=== PATIENT | female | born 1985 | race Caucasian/White ===

== ENCOUNTER 2016-05-14 19:41 | Emergency (ER) | payer OTHER ==
[~2016-05-14 19:41] MED LIST: ACET500C OR; COLA100C2 OR; DITR5TAB PO; IBUP600T OR; LEVA500T PO; NORCOTAB PO; PRENATAL VITAMIN OR; VALT500T PO
[2016-05-14 23:02] LABS: BASO % 0.6 % (0.0-1.0); EOS # 0.1 K/mm3 (0.0-0.50); EOS % 1.4 % (0.0-3.0); LARGE UNSTAINED CELL # 0.1 K/mm3 (0.0-0.4); LARGE UNSTAINED CELL % 2.3 % (0.0-4.0); LYMPH # 2.2 K/mm3 (1.5-4.5); LYMPH % 38.7 % (24.0-44.0); MEAN CORPUSCULAR HEMOGLOBIN 19.7 pg (27.0-33.0); MEAN CORPUSCULAR HGB CONC 27.9 g/dl (32.0-36.5); MEAN CORPUSCULAR VOLUME 70.3 fl (80.0-96.0); MONO # 0.3 K/mm3 (0.0-0.8); MONO % 5.8 % (0.0-5.0); NEUTROPHILS # 2.8 K/mm3 (1.8-7.7); NEUTROPHILS % 51.3 % (36.0-66.0); PLATELET COUNT, AUTOMATED 150 k/mm3 (150-450); RED CELL DISTRIBUTION WIDTH 17.4 % (11.5-14.5); WHITE BLOOD COUNT 5.5 K/mm3 (4.0-10.0)
[2016-05-14 23:05] LABS: ADD MORPHOLOGY? YES
[2016-05-14 23:31] LABS: ALBUMIN 3.7 GM/DL (3.2-5.2); ALBUMIN/GLOBULIN RATIO 1.19 (1.00-1.93); ALKALINE PHOSPHATASE 59 U/L (45-117); ALT/SGPT 16 U/L (12-78); AMYLASE 24 U/L (25-115); ANION GAP 8 MEQ/L (8-16); AST/SGOT 9 U/L (15-37); BILIRUBIN,DIRECT < 0.1 MG/DL (0.0-0.2); BILIRUBIN,TOTAL 0.2 MG/DL (0.2-1.0); BLOOD UREA NITROGEN 12 MG/DL (7-18); CALCIUM LEVEL 8.1 MG/DL (8.5-10.1); CARBON DIOXIDE LEVEL 29 MEQ/L (21-32); CHLORIDE LEVEL 105 MEQ/L (98-107); GLOMERULAR FILTRATION RATE > 60.0 (>60); GLUCOSE, FASTING 84 MG/DL (70-105); POTASSIUM SERUM 3.6 MEQ/L (3.5-5.1); SODIUM LEVEL 142 MEQ/L (136-145); TOTAL PROTEIN 6.8 GM/DL (6.4-8.2)
[2016-05-14 23:37] LABS: ANISOCYTOSIS 1+; HYPOCHROMASIA 2+; MICROCYTOSIS 3+
--- NOTE | 2016-05-15 00:17 | EDDOCDS ---
Physician Documentation [facility] Name: Dione Chopra Age: 31 yrs Sex: Female : 1985 Arrival Date: 05/14/2016 Time: 19:41 Bed I5 / M5 Private MD: Arvin Herring M Disposition: 05/15/16 00:00 Discharged to Home/Self Care. Impression: Generalized abdominal pain, Iron deficiency anemia. - Condition is Stable. - Discharge Instructions: Abdominal Pain, Adult, Iron Deficiency Anemia, Adult. - Medication Reconciliation, Local Pharmacy Hours form. - Follow up: Arvin Herring; When: Call to arrange an appointment; Reason: Recheck today's complaints, Continuance of care. - Problem is new. - Symptoms are unchanged. Historical: - Allergies: Latex; - Home Meds: 1. Valtrex Oral as needed - PMHx: Herpes; Obesity; - PSHx: Cholecystectomy; Tubal ligation (March 2010); Tonsillectomy; Kidney Stent- Right; - Social history: Smoking status: Patient states was never smoker of tobacco. No barriers to communication noted, The patient speaks fluent Irish, Speaks appropriately for age. - Family history: Not pertinent. - : The pt / caregiver states he / she is not on anticoagulants. Home medication list is obtained from the patient, [employer] import data. - Exposure Risk Screening:: None identified. 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 6 in. (167.64 cm) (R); Pain 7/10; 22:29 BP 113 / 58; Pulse 72; Resp 16; Temp 97.5(O); Pulse Ox 99% on R/A; Pain 3/10; sew 05/15 00:11 BP 110 / 60; Pulse 70; Resp 18; Temp 98.9(TE); Pulse Ox 98% on R/A; Pain 4/10; kb5 05/14 19:43 Body Mass Index 28.25 (79.38 kg, 167.64 cm) mt4 MDM: 05/14 19:55 UCG by Nursing ordered. dt4 19:57 Urinalysis Ordered. EDMS 19:57 Urine Culture Ordered. EDMS 22:41 Urinalysis Reviewed. mo1 22:52 Amylase Ordered. EDMS 22:52 Basic Metabolic Profile Ordered. EDMS 22:52 CBC with Diff Ordered. EDMS 22:52 Lipase Ordered. EDMS 22:52 Liver Profile Ordered. EDMS 22:52 Abdomen 2 View Ordered. EDMS 22:52 NOTHING BY MOUTH+DIET ordered. EDMS 23:17 [facility] Payment Agreement was scanned into [employer] and attached to record. gjb 23:17 Financial registration complete. gjb 23:35 Amylase Reviewed. mo1 23:35 Basic Metabolic Profile Reviewed. mo1 23:35 CBC with Diff Reviewed. mo1 23:36 Liver Profile Reviewed. mo1 23:36 Lipase Reviewed. mo1 23:40 RBC MORPH PROF NO CHARGE Reviewed. mo1 23:43 CBC with Diff Reviewed. mo1 23:43 RBC MORPH PROF NO CHARGE Reviewed. mo1 05/15 00:03 FERRITIN Ordered. EDNY Point of Care Testing: Urine : 05/14 20:22 hCG Reading: Negative; Control Reading: Positive; sew Ranges: Signatures: Dispatcher [employer] EDNY Marita Durbin RN RN kmg1 Herminio Downs LPN BIOCHEMISTRY SPECIALIST rw1 Alfreda Vargas,RN RN ld5 William Woodward PA PA mo1 Lisandra Nicholson PA-C PATyshawn dt4 Italia Carvalho The chart was reviewed and I authenticate all verbal orders and agree with the evaluation and treatment provided.Corrections: (The following items were deleted from the chart) 05/15 00:03 05/14 23:58 TOTAL IRON BINDING CAPACIT+LAB ordered. EDMS EDMS 05/15 00:03 05/14 23:58 FERRITIN+LAB ordered. EDNY EDMS 05/15 00:03 05/14 23:58 IRON (FE)+LAB ordered. EDNY EDMS Attachments: 23:17 [facility] Payment Agreement gjb MTDD
--- NOTE | 2016-05-15 00:17 | EDDOCDS ---
Nurse's Notes [facility] Name: Dione Chopra Age: 31 yrs Sex: Female : 1985 Arrival Date: 05/14/2016 Time: 19:41 Bed I5 / M5 Private MD: Arvin Herring M Diagnosis: Generalized abdominal pain;Iron deficiency anemia Presentation: 05/14 19:51 Presenting complaint: Patient states: Left lower abdominal pain and burning for 2 days. [facility] [place] Risk factors: the patient reports no vaginal bleeding. Adult Sepsis Screening: The patient does not have new or worsening altered mentation. Patient's respiratory rate is less than 22. Systolic blood pressure is greater than 100. Patient has a qSOFA score of 0- Negative Sepsis Screen. Suicide/Homicide risk assessment- the patient denies having any suicidal and/or homicidal ideations and does not present with any other emotional, behavioral or mental health complaints. 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 Transition of care: patient was not received from another setting of care. 19:51 Acuity: ODILON Level 3 [facility] [place] [place] 19:51 Method Of Arrival: Walkin/Carried/Asstd [facility] [place] [place] Triage Assessment: 19:53 General: Appears in no apparent distress, comfortable, Behavior is appropriate for age, kmg1 cooperative, pleasant. Pain: Location: left lower quadrant Pain currently is 6 out of 10 on a pain scale. Quality of pain is described as burning, stabbing, Pain began 2-3 days ago. HIV screening NA for this visit Offered previously. GI: Reports lower abdominal pain. 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 Valtrex Oral as needed - PMHx: Herpes; Obesity; - PSHx: Cholecystectomy; Tubal ligation (March 2010); Tonsillectomy; Kidney Stent- Right; - Social history: Smoking status: Patient states was never smoker of tobacco. No barriers to communication noted, The patient speaks fluent Wallisian, Speaks appropriately for age. - Family history: Not pertinent. - : The pt / caregiver states he / she is not on anticoagulants. Home medication list is obtained from the patient, [employer] import data. - Exposure Risk Screening:: None identified. Screenin/22 00:00 Screening information is obtained from the patient. Fall risk: No risks identified. ld5 Assistance ADL's: requires no assistance with activities of daily living. Abuse/DV Screen: The patient / caregiver reports he/she is: not in a situation that causes fear, pain or injury. Nutritional screening: No deficits noted. Advance Directives: Currently, there is no health care proxy. home support is adequate. Assessment: 05/14 23:57 General: First contact with pt. Pt sitting up in bed. Son at bedside. Pt reports ld5 abdominal pain for past 2 days. Denies nausea/vomiting. Respirations easy and unlabored. Neurological: Level of Consciousness is awake, alert. GI: Abdomen is non- distended Bowel sounds present X 4 quads. Abd is soft and non tender X 4 quads. : Denies burning with urination, pain with urination. Derm: Skin is intact, Skin is dry, Skin is pale. 05/15 00:14 Reassessment: Patient appears in no apparent distress at this time. Patient states rw1 feeling better. no c/o at this time, states " I'm good ready to go home.". Vital Signs: 05/14 19:43 BP 111 / 56 LA Sitting (auto/reg); Pulse 83 LA; Resp 18 S; Temp 97.2(O); Pulse Ox 100% hi4 on R/A; Weight 79.38 kg (R); Height 5 ft. 6 in. (167.64 cm) (R); Pain 7/10; 22:29 BP 113 / 58; Pulse 72; Resp 16; Temp 97.5(O); Pulse Ox 99% on R/A; Pain 3/10; sew 05/15 00:11 BP 110 / 60; Pulse 70; Resp 18; Temp 98.9(TE); Pulse Ox 98% on R/A; Pain 4/10; kb5 05/14 19:43 Body Mass Index 28.25 (79.38 kg, 167.64 cm) hi4 Vitals: 05/14 19:43 Log In Time: May 14, 2016 at 19:41. hi4 ED Course: 19:42 Patient visited by Bruna Reyes. mt4 19:42 Patient moved to Waiting mt4 19:43 Arvin Herring is Private Physician. mt4 19:45 Patient moved to Pre RCE mt4 19:52 Triage Initiated kmg1 20:20 Urine Culture Sent. sew 20:20 Urinalysis Sent. sew 20:21 Patient visited by Elham Thompson. sew 20:21 Urine collected. Clean catch specimen. Urine specimen sent to lab. sew 20:22 Patient visited by Elham Thompson. sew 22:17 Patient moved to Triage 2 jf3 22:26 William Woodward PA is PHCP. mo1 22:26 Preet Lawrence DO is Attending Physician. mo1 22:29 Patient visited by Elham Thompson. sew 22:46 Patient visited by William Woodward PA. mo1 22:56 Amylase Sent. jf3 22:56 Basic Metabolic Profile Sent. jf3 22:56 CBC with Diff Sent. jf3 22:56 Lipase Sent. jf3 22:56 Liver Profile Sent. jf3 22:57 Patient moved to TR1 jf3 23:17 [facility] Payment Agreement was scanned into [employer] and attached to record. gjb 23:40 Patient moved to 5 / cz 23:51 Patient visited by Alfreda Vargas RN. ld5 01 00:00 Arvin Herring is Referral Physician. mo1 00:00 The patient / caregiver is instructed regarding the plan of care and ED course. ld5 Accompanied by Family Member, Patient has correct armband on for positive identification. 00:00 No IV's were initiated during this patient's visit. No procedures done that require ld5 assistance. 00:01 Patient visited by Alfreda Vargas RN. ld5 00:04 Patient visited by William Woodward PA. mo1 00:11 Patient visited by Kanu Harris PCA. kb5 Point of Care Testing: Urine : 05/14 20:22 hCG Reading: Negative; Control Reading: Positive; sew Ranges: Order Results: Lab Order: Urinalysis; SPEC'M 05/14/16 20:15 Test: APPEARANCE, URINE; Value: CLEAR; Range: CLEAR; Status: F Test: COLOR, URINE; Value: YELLOW; Range: YELLOW; Status: F Test: PH,URINE; Value: 5.0; Range: 5.0-9.0; Units: UNITS; Status: F Test: SPECIFIC GRAVITY URINE AUTO; Value: 1.029; Range: 1.002-1.035; Status: F Test: PROTEIN, URINE AUTO; Value: NEGATIVE; Range: NEGATIVE; Units: mg/dL; Status: F Test: GLUCOSE, URINE (UA) AUTO; Value: NEGATIVE; Range: NEGATIVE; Units: mg/dL; Status: F Test: KETONE, URINE AUTO; Value: TRACE; Range: NEGATIVE; Abnormal: Above high normal; Units: mg/dL; Status: F Test: UROBILINOGEN, URINE AUTO; Value: 0.2; Range: 0.0-2.0; Units: mg/dL; Status: F Test: BILIRUBIN, URINE AUTO; Value: NEGATIVE; Range: NEGATIVE; Status: F Test: NITRITE, URINE AUTO; Value: NEGATIVE; Range: NEGATIVE; Status: F Test: LEUKOCYTE ESTERASE, URINE AUTO; Value: 1+; Range: NEGATIVE; Abnormal: Above high normal; Status: F Test: BLOOD, URINE BLOOD; Value: NEGATIVE; Range: NEGATIVE; Status: F Test: WBC, URINE AUTO; Value: 6; Range: 0-3; Abnormal: Above high normal; Units: /HPF; Status: F Test: RBC, URINE AUTO; Value: 2; Range: 0-3; Units: /HPF; Status: F Test: BACTERIA, URINE AUTO; Value: 1+; Range: NEGATIVE; Abnormal: Above high normal; Status: F Test: SQUAMOUS EPITHELIAL CELL UR AU; Value: 4; Range: 0-6; Units: /HPF; Status: F Test: MUCUS, URINE; Value: MODERATE; Range: NEGATIVE; Status: F Test: HYALINE CAST, URINE AUTO; Value: 0; Range: 0-1; Units: /LPF; Status: F Lab Order: Amylase; SPEC'M 05/14/16 22:56 Test: AMYLASE; Value: 24; Range: 25-115; Abnormal: Below low normal; Units: U/L; Status: F Lab Order: Basic Metabolic Profile; SPEC'M 05/14/16 22:56 Test: GLUCOSE, FASTING; Value: 84; Range: 70-105; Units: MG/DL; Status: F Test: BLOOD UREA NITROGEN; Value: 12; Range: 7-18; Units: MG/DL; Status: F Test: CREATININE FOR GFR; Value: 0.50; Range: 0.55-1.02; Abnormal: Below low normal; Units: MG/DL; Status: F Test: GLOMERULAR FILTRATION RATE; Value: > 60.0; Range: >60; Status: F Test: SODIUM LEVEL; Value: 142; Range: 136-145; Units: MEQ/L; Status: F Test: POTASSIUM SERUM; Value: 3.6; Range: 3.5-5.1; Units: MEQ/L; Status: F Test: CHLORIDE LEVEL; Value: 105; Range: 98-107; Units: MEQ/L; Status: F Test: CARBON DIOXIDE LEVEL; Value: 29; Range: 21-32; Units: MEQ/L; Status: F Test: ANION GAP; Value: 8; Range: 8-16; Units: MEQ/L; Status: F Test: CALCIUM LEVEL; Value: 8.1; Range: 8.5-10.1; Abnormal: Below low normal; Units: MG/DL; Status: F Test Note: ; Units are mL/min/1.73 m2 Chronic Kidney Disease Staging per NKF: Stage I & II GFR >=60 Normal to Mildly Decreased Stage III GFR 30-59 Moderately Decreased Stage IV GFR 15-29 Severely Decreased Stage V GFR <15 Very Little GFR Left ESRD GFR <15 on PRESSURIZER Lab Order: CBC with Diff; SPEC'M 05/14/16 22:56 Test: WHITE BLOOD COUNT; Value: 5.5; Range: 4.0-10.0; Units: K/mm3; Status: F Test: RED BLOOD COUNT; Value: 3.74; Range: 4.00-5.40; Abnormal: Below low normal; Units: M/mm3; Status: F Test: HEMOGLOBIN; Value: 7.4; Range: 12.0-16.0; Abnormal: Below low normal; Units: g/dl; Status: F Test: HEMATOCRIT; Value: 26.3; Range: 36.0-47.0; Abnormal: Below low normal; Units: %; Status: F Test: MEAN CORPUSCULAR VOLUME; Value: 70.3; Range: 80.0-96.0; Abnormal: Below low normal; Units: fl; Status: F Test: MEAN CORPUSCULAR HEMOGLOBIN; Value: 19.7; Range: 27.0-33.0; Abnormal: Below low normal; Units: pg; Status: F Test: MEAN CORPUSCULAR HGB CONC; Value: 27.9; Range: 32.0-36.5; Abnormal: Below low normal; Units: g/dl; Status: F Test: RED CELL DISTRIBUTION WIDTH; Value: 17.4; Range: 11.5-14.5; Abnormal: Above high normal; Units: %; Status: F Test: PLATELET COUNT, AUTOMATED; Value: 150; Range: 150-450; Units: k/mm3; Status: F Test: NEUTROPHILS %; Value: 51.3; Range: 36.0-66.0; Units: %; Status: F Test: LYMPH %; Value: 38.7; Range: 24.0-44.0; Units: %; Status: F Test: MONO %; Value: 5.8; Range: 0.0-5.0; Abnormal: Above high normal; Units: %; Status: F Test: EOS %; Value: 1.4; Range: 0.0-3.0; Units: %; Status: F Test: BASO %; Value: 0.6; Range: 0.0-1.0; Units: %; Status: F Test: LARGE UNSTAINED CELL %; Value: 2.3; Range: 0.0-4.0; Units: %; Status: F Test: NEUTROPHILS #; Value: 2.8; Range: 1.8-7.7; Units: K/mm3; Status: F Test: LYMPH #; Value: 2.2; Range: 1.5-4.5; Units: K/mm3; Status: F Test: MONO #; Value: 0.3; Range: 0.0-0.8; Units: K/mm3; Status: F Test: EOS #; Value: 0.1; Range: 0.0-0.50; Units: K/mm3; Status: F Test: BASO #; Value: 0.0; Range: 0.0-0.2; Units: K/mm3; Status: F Test: LARGE UNSTAINED CELL #; Value: 0.1; Range: 0.0-0.4; Units: K/mm3; Status: F Lab Order: Lipase; SPEC'M 05/14/16 22:56 Test: LIPASE; Value: 182; Range: 73-393; Units: U/L; Status: F Lab Order: Liver Profile; SPEC'M 05/14/16 22:56 Test: AST/SGOT; Value: 9; Range: 15-37; Abnormal: Below low normal; Units: U/L; Status: F Test: ALT/SGPT; Value: 16; Range: 12-78; Units: U/L; Status: F Test: ALKALINE PHOSPHATASE; Value: 59; Range: 45-117; Units: U/L; Status: F Test: BILIRUBIN,TOTAL; Value: 0.2; Range: 0.2-1.0; Units: MG/DL; Status: F Test: BILIRUBIN,DIRECT; Value: < 0.1; Range: 0.0-0.2; Units: MG/DL; Status: F Test: TOTAL PROTEIN; Value: 6.8; Range: 6.4-8.2; Units: GM/DL; Status: F Test: ALBUMIN; Value: 3.7; Range: 3.2-5.2; Units: GM/DL; Status: F Test: ALBUMIN/GLOBULIN RATIO; Value: 1.19; Range: 1.00-1.93; Status: F Lab Order: RBC MORPH PROF NO CHARGE; [facility]'M 05/14/16 22:56 Test: PLATELET ESTIMATE; Range: NORMAL; Status: I Test: HYPOCHROMASIA; Value: 2+; Status: F Test: ANISOCYTOSIS; Value: 1+; Status: F Test: MICROCYTOSIS; Value: 3+; Status: F Test: PLATELET ESTIMATE; Value: NORMAL; Range: NORMAL; Status: F Lab Order: FERRITIN; SPEC' 05/14/16 22:56 Test: FERRITIN; Range: 8-252; Units: NG/ML; Status: I Lab Order: TOTAL IRON BINDING CAPACIT; [facility]' 05/14/16 22:56 Test: IRON (FE); Range: 50-170; Units: UG/DL; Status: I Test: TOTAL IRON BINDING CAPACITY; Range: 250-450; Units: UG/DL; Status: I Test: PERCENT SATURATION; Range: 13.2-37.4; Units: %; Status: I Outcome: 05/15 00:00 Discharge ordered by Provider. mo1 00:14 Discharge Assessment: Patient awake, alert and oriented x 3. No cognitive and/or rw1 functional deficits noted. Patient verbalized understanding of disposition instructions. patient administered narcotics - no. The following High Risk Discharge criteria are identified: None. Discharged to home ambulatory. Condition: stable Condition: improved. Discharge instructions given to patient, Instructed on discharge instructions, follow up and referral plans. Demonstrated understanding of instructions, Pt was receptive of discharge instructions/ teaching. No special radiology studies were completed. Property sent home with patient. 00:16 Patient left the ED. rw1 Signatures: Marita Durbin, RN RN kmg1 Misael Baig, RN RN Herminio Ace LPN LPN rw1 Kanu Harris, PEST MANAGEMENT SUPERVISOR PEST MANAGEMENT SUPERVISOR kb5 Bruna Reyes mt4 Alfreda Vargas RN RN ld5 Elham Thompson Michael, PA PA mo1 Fred Alvarez,RN RN jf3 Italia Carvalho Corrections: (The following items were deleted from the chart) 00:15 00:14 Reassessment: Patient appears in no apparent distress at this time. Patient rw1 denies pain at this time. Patient states feeling better. rw1 MTDD
[2016-05-15 00:34] LABS: FERRITIN 1 NG/ML (8-252); PERCENT SATURATION 3.4 % (13.2-37.4); TOTAL IRON BINDING CAPACITY 503 UG/DL (250-450)
--- NOTE | 2016-05-15 08:49 | REP ---
Flat and upright KUB 05/14/2016 Indication: Abdominal pain Comparison: KUB supine 09/16/2014 There is moderate to large amount of stool within the cecum and right colon. Remainder of the colon is air filled with a nonspecific gas pattern. There is no evidence of bowel obstruction. There is no free intraperitoneal air. The bones are normal appearance. Surgical clips are noted in the right upper quadrant without change. A previous right ureteral stent is no longer present Impression : [id number] amount of stool within the cecum and right colon. No evidence of bowel obstruction or free intraperitoneal air Signed by Pina Cates MD 05/15/2016 08:41 A
--- NOTE | 2016-05-17 01:18 | EDDOCDS ---
Nurse's Notes [facility] Name: Dione Chopra Age: 31 yrs Sex: Female : 1985 Arrival Date: 05/14/2016 Time: 19:41 Bed I5 / M5 Private MD: Arvin Herring M Diagnosis: Generalized abdominal pain;Iron deficiency anemia Presentation: 05/14 19:51 Presenting complaint: Patient states: Left lower abdominal pain and burning for 2 days. [facility] [place] Risk factors: the patient reports no vaginal bleeding. Adult Sepsis Screening: The patient does not have new or worsening altered mentation. Patient's respiratory rate is less than 22. Systolic blood pressure is greater than 100. Patient has a qSOFA score of 0- Negative Sepsis Screen. Suicide/Homicide risk assessment- the patient denies having any suicidal and/or homicidal ideations and does not present with any other emotional, behavioral or mental health complaints. Status: Patient is not a director construction services or dependent. Transition of care: patient was not received from another setting of care. 19:51 Acuity: ODILON Level 3 [facility] [place] 19:51 Method Of Arrival: Walkin/Carried/Asstd [facility] [place] Triage Assessment: 19:53 General: Appears in no apparent distress, comfortable, Behavior is appropriate for age, kmg1 cooperative, pleasant. Pain: Location: left lower quadrant Pain currently is 6 out of 10 on a pain scale. Quality of pain is described as burning, stabbing, Pain began 2-3 days ago. HIV screening NA for this visit Offered previously. GI: Reports lower abdominal pain. 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 Valtrex Oral as needed - PMHx: Herpes; Obesity; - PSHx: Cholecystectomy; Tubal ligation (March 2010); Tonsillectomy; Kidney Stent- Right; - Social history: Smoking status: Patient states was never smoker of tobacco. No barriers to communication noted, The patient speaks fluent Azerbaijani, Speaks appropriately for age. - Family history: Not pertinent. - : The pt / caregiver states he / she is not on anticoagulants. Home medication list is obtained from the patient, [employer] import data. - Exposure Risk Screening:: None identified. Screenin/22 00:00 Screening information is obtained from the patient. Fall risk: No risks identified. ld5 Assistance ADL's: requires no assistance with activities of daily living. Abuse/DV Screen: The patient / caregiver reports he/she is: not in a situation that causes fear, pain or injury. Nutritional screening: No deficits noted. Advance Directives: Currently, there is no health care proxy. home support is adequate. Assessment: 05/14 23:57 General: First contact with pt. Pt sitting up in bed. Son at bedside. Pt reports ld5 abdominal pain for past 2 days. Denies nausea/vomiting. Respirations easy and unlabored. Neurological: Level of Consciousness is awake, alert. GI: Abdomen is non- distended Bowel sounds present X 4 quads. Abd is soft and non tender X 4 quads. : Denies burning with urination, pain with urination. Derm: Skin is intact, Skin is dry, Skin is pale. 05/15 00:14 Reassessment: Patient appears in no apparent distress at this time. Patient states rw1 feeling better. no c/o at this time, states " I'm good ready to go home.". Vital Signs: 05/14 19:43 BP 111 / 56 LA Sitting (auto/reg); Pulse 83 LA; Resp 18 S; Temp 97.2(O); Pulse Ox 100% nj4 on R/A; Weight 79.38 kg (R); Height 5 ft. 6 in. (167.64 cm) (R); Pain 7/10; 22:29 BP 113 / 58; Pulse 72; Resp 16; Temp 97.5(O); Pulse Ox 99% on R/A; Pain 3/10; sew 05/15 00:11 BP 110 / 60; Pulse 70; Resp 18; Temp 98.9(TE); Pulse Ox 98% on R/A; Pain 4/10; kb5 05/14 19:43 Body Mass Index 28.25 (79.38 kg, 167.64 cm) nj4 Vitals: 05/14 19:43 Log In Time: May 14, 2016 at 19:41. nj4 ED Course: 19:42 Patient visited by Bruna Reyes. mt4 19:42 Patient moved to Waiting mt4 19:43 Arvin Herring is Private Physician. mt4 19:45 Patient moved to Pre RCE mt4 19:52 Triage Initiated kmg1 20:20 Urine Culture Sent. sew 20:20 Urinalysis Sent. sew 20:21 Patient visited by Elham Thompson. sew 20:21 Urine collected. Clean catch specimen. Urine specimen sent to lab. sew 20:22 Patient visited by Elham Thompson. sew 22:17 Patient moved to Triage 2 jf3 22:26 William Woodward PA is PHCP. mo1 22:26 Preet Lawrence DO is Attending Physician. mo1 22:29 Patient visited by Elham Thompson. sew 22:46 Patient visited by William Woodward PA. mo1 22:56 Amylase Sent. jf3 22:56 Basic Metabolic Profile Sent. jf3 22:56 CBC with Diff Sent. jf3 22:56 Lipase Sent. jf3 22:56 Liver Profile Sent. jf3 22:57 Patient moved to TR1 jf3 23:17 ON LICENSE OF [facility] Payment Agreement was scanned into [employer] and attached to record. gjb 23:40 Patient moved to I5 / cz 23:51 Patient visited by Alfreda Vargas RN. ld5 01 00:00 Arvin Herring is Referral Physician. mo1 00:00 The patient / caregiver is instructed regarding the plan of care and ED course. ld5 Accompanied by Family Member, Patient has correct armband on for positive identification. 00:00 No IV's were initiated during this patient's visit. No procedures done that require ld5 assistance. 00:01 Patient visited by Alfreda Vargas RN. ld5 00:04 Patient visited by William Woodward PA. mo1 00:11 Patient visited by Kanu Harris PCA. kb5 00:34 Patient name changed from Dione\\S\\Sonia\\S\\Tarcinale\\S\\ to Dione\\S\\M\\S\\Tarcinale. EDMS 09:13 Abdomen 2 View Returned. EDMS 14:21 T-Sheet-- Draft Copy was scanned into [employer] and attached to record. kf3 Point of Care Testing: Urine : 05/14 20:22 hCG Reading: Negative; Control Reading: Positive; sew Ranges: Order Results: Lab Order: Urinalysis; SPEC'M 05/14/16 20:15 Test: APPEARANCE, URINE; Value: CLEAR; Range: CLEAR; Status: F Test: COLOR, URINE; Value: YELLOW; Range: YELLOW; Status: F Test: PH,URINE; Value: 5.0; Range: 5.0-9.0; Units: UNITS; Status: F Test: SPECIFIC GRAVITY URINE AUTO; Value: 1.029; Range: 1.002-1.035; Status: F Test: PROTEIN, URINE AUTO; Value: NEGATIVE; Range: NEGATIVE; Units: mg/dL; Status: F Test: GLUCOSE, URINE (UA) AUTO; Value: NEGATIVE; Range: NEGATIVE; Units: mg/dL; Status: F Test: KETONE, URINE AUTO; Value: TRACE; Range: NEGATIVE; Abnormal: Above high normal; Units: mg/dL; Status: F Test: UROBILINOGEN, URINE AUTO; Value: 0.2; Range: 0.0-2.0; Units: mg/dL; Status: F Test: BILIRUBIN, URINE AUTO; Value: NEGATIVE; Range: NEGATIVE; Status: F Test: NITRITE, URINE AUTO; Value: NEGATIVE; Range: NEGATIVE; Status: F Test: LEUKOCYTE ESTERASE, URINE AUTO; Value: 1+; Range: NEGATIVE; Abnormal: Above high normal; Status: F Test: BLOOD, URINE BLOOD; Value: NEGATIVE; Range: NEGATIVE; Status: F Test: WBC, URINE AUTO; Value: 6; Range: 0-3; Abnormal: Above high normal; Units: /HPF; Status: F Test: RBC, URINE AUTO; Value: 2; Range: 0-3; Units: /HPF; Status: F Test: BACTERIA, URINE AUTO; Value: 1+; Range: NEGATIVE; Abnormal: Above high normal; Status: F Test: SQUAMOUS EPITHELIAL CELL UR AU; Value: 4; Range: 0-6; Units: /HPF; Status: F Test: MUCUS, URINE; Value: MODERATE; Range: NEGATIVE; Status: F Test: HYALINE CAST, URINE AUTO; Value: 0; Range: 0-1; Units: /LPF; Status: F Lab Order: Urine Culture; SPEC'M 05/14/16 20:15 Test: URINE CULTURE; Value: URINE CULTURE RESULT NO GROWTH; Status: F Lab Order: Amylase; SPEC'M 05/14/16 22:56 Test: AMYLASE; Value: 24; Range: 25-115; Abnormal: Below low normal; Units: U/L; Status: F Lab Order: Basic Metabolic Profile; SPEC'M 05/14/16 22:56 Test: GLUCOSE, FASTING; Value: 84; Range: 70-105; Units: MG/DL; Status: F Test: BLOOD UREA NITROGEN; Value: 12; Range: 7-18; Units: MG/DL; Status: F Test: CREATININE FOR GFR; Value: 0.50; Range: 0.55-1.02; Abnormal: Below low normal; Units: MG/DL; Status: F Test: GLOMERULAR FILTRATION RATE; Value: > 60.0; Range: >60; Status: F Test: SODIUM LEVEL; Value: 142; Range: 136-145; Units: MEQ/L; Status: F Test: POTASSIUM SERUM; Value: 3.6; Range: 3.5-5.1; Units: MEQ/L; Status: F Test: CHLORIDE LEVEL; Value: 105; Range: 98-107; Units: MEQ/L; Status: F Test: CARBON DIOXIDE LEVEL; Value: 29; Range: 21-32; Units: MEQ/L; Status: F Test: ANION GAP; Value: 8; Range: 8-16; Units: MEQ/L; Status: F Test: CALCIUM LEVEL; Value: 8.1; Range: 8.5-10.1; Abnormal: Below low normal; Units: MG/DL; Status: F Test Note: ; Units are mL/min/1.73 m2 Chronic Kidney Disease Staging per NKF: Stage I & II GFR >=60 Normal to Mildly Decreased Stage III GFR 30-59 Moderately Decreased Stage IV GFR 15-29 Severely Decreased Stage V GFR <15 Very Little GFR Left ESRD GFR <15 on HEADLINE WRITER Lab Order: CBC with Diff; SPEC'M 05/14/16 22:56 Test: WHITE BLOOD COUNT; Value: 5.5; Range: 4.0-10.0; Units: K/mm3; Status: F Test: RED BLOOD COUNT; Value: 3.74; Range: 4.00-5.40; Abnormal: Below low normal; Units: M/mm3; Status: F Test: HEMOGLOBIN; Value: 7.4; Range: 12.0-16.0; Abnormal: Below low normal; Units: g/dl; Status: F Test: HEMATOCRIT; Value: 26.3; Range: 36.0-47.0; Abnormal: Below low normal; Units: %; Status: F Test: MEAN CORPUSCULAR VOLUME; Value: 70.3; Range: 80.0-96.0; Abnormal: Below low normal; Units: fl; Status: F Test: MEAN CORPUSCULAR HEMOGLOBIN; Value: 19.7; Range: 27.0-33.0; Abnormal: Below low normal; Units: pg; Status: F Test: MEAN CORPUSCULAR HGB CONC; Value: 27.9; Range: 32.0-36.5; Abnormal: Below low normal; Units: g/dl; Status: F Test: RED CELL DISTRIBUTION WIDTH; Value: 17.4; Range: 11.5-14.5; Abnormal: Above high normal; Units: %; Status: F Test: PLATELET COUNT, AUTOMATED; Value: 150; Range: 150-450; Units: k/mm3; Status: F Test: NEUTROPHILS %; Value: 51.3; Range: 36.0-66.0; Units: %; Status: F Test: LYMPH %; Value: 38.7; Range: 24.0-44.0; Units: %; Status: F Test: MONO %; Value: 5.8; Range: 0.0-5.0; Abnormal: Above high normal; Units: %; Status: F Test: EOS %; Value: 1.4; Range: 0.0-3.0; Units: %; Status: F Test: BASO %; Value: 0.6; Range: 0.0-1.0; Units: %; Status: F Test: LARGE UNSTAINED CELL %; Value: 2.3; Range: 0.0-4.0; Units: %; Status: F Test: NEUTROPHILS #; Value: 2.8; Range: 1.8-7.7; Units: K/mm3; Status: F Test: LYMPH #; Value: 2.2; Range: 1.5-4.5; Units: K/mm3; Status: F Test: MONO #; Value: 0.3; Range: 0.0-0.8; Units: K/mm3; Status: F Test: EOS #; Value: 0.1; Range: 0.0-0.50; Units: K/mm3; Status: F Test: BASO #; Value: 0.0; Range: 0.0-0.2; Units: K/mm3; Status: F Test: LARGE UNSTAINED CELL #; Value: 0.1; Range: 0.0-0.4; Units: K/mm3; Status: F Lab Order: Lipase; SPEC' 05/14/16 22:56 Test: LIPASE; Value: 182; Range: 73-393; Units: U/L; Status: F Lab Order: Liver Profile; SPEC'M 05/14/16 22:56 Test: AST/SGOT; Value: 9; Range: 15-37; Abnormal: Below low normal; Units: U/L; Status: F Test: ALT/SGPT; Value: 16; Range: 12-78; Units: U/L; Status: F Test: ALKALINE PHOSPHATASE; Value: 59; Range: 45-117; Units: U/L; Status: F Test: BILIRUBIN,TOTAL; Value: 0.2; Range: 0.2-1.0; Units: MG/DL; Status: F Test: BILIRUBIN,DIRECT; Value: < 0.1; Range: 0.0-0.2; Units: MG/DL; Status: F Test: TOTAL PROTEIN; Value: 6.8; Range: 6.4-8.2; Units: GM/DL; Status: F Test: ALBUMIN; Value: 3.7; Range: 3.2-5.2; Units: GM/DL; Status: F Test: ALBUMIN/GLOBULIN RATIO; Value: 1.19; Range: 1.00-1.93; Status: F Lab Order: RBC MORPH PROF NO CHARGE; M 05/14/16 22:56 Test: PLATELET ESTIMATE; Range: NORMAL; Status: I Test: HYPOCHROMASIA; Value: 2+; Status: F Test: ANISOCYTOSIS; Value: 1+; Status: F Test: MICROCYTOSIS; Value: 3+; Status: F Test: PLATELET ESTIMATE; Value: NORMAL; Range: NORMAL; Status: F Lab Order: FERRITIN; SPEC'M 05/14/16 22:56 Test: FERRITIN; Value: 1; Range: 8-252; Abnormal: Below low normal; Units: NG/ML; Status: F Lab Order: TOTAL IRON BINDING CAPACIT; SPEC05/14/16 22:56 Test: IRON (FE); Value: 17; Range: 50-170; Abnormal: Below low normal; Units: UG/DL; Status: F Test: TOTAL IRON BINDING CAPACITY; Value: 503; Range: 250-450; Abnormal: Above high normal; Units: UG/DL; Status: F Test: PERCENT SATURATION; Value: 3.4; Range: 13.2-37.4; Abnormal: Below low normal; Units: %; Status: F Radiology Order: Abdomen 2 View Test: Abdomen 2 View REASON FOR EXAMINATION: Abdomen Pain; Flat and upright KUB 05/14/2016; ; Indication: Abdominal pain; ; Comparison: KUB supine 09/16/2014; ; There is moderate to large amount of stool within the cecum and right colon.; Remainder of the colon is air filled with a nonspecific gas pattern. There is no; evidence of bowel obstruction. There is no free intraperitoneal air. The bones; are normal appearance.; ; Surgical clips are noted in the right upper quadrant without change. A previous; right ureteral stent is no longer present; ; Impression : [id number] amount of stool within the cecum and right colon.; No evidence of bowel obstruction or free intraperitoneal air; ; ; Signed by; Pina Cates MD 05/15/2016 08:41 A; Outcome: 05/15 00:00 Discharge ordered by Provider. mo1 00:14 Discharge Assessment: Patient awake, alert and oriented x 3. No cognitive and/or rw1 functional deficits noted. Patient verbalized understanding of disposition instructions. patient administered narcotics - no. The following High Risk Discharge criteria are identified: None. Discharged to home ambulatory. Condition: stable Condition: improved. Discharge instructions given to patient, Instructed on discharge instructions, follow up and referral plans. Demonstrated understanding of instructions, Pt was receptive of discharge instructions/ teaching. No special radiology studies were completed. Property sent home with patient. 00:16 Patient left the ED. rw1 Signatures: Dispatcher [employer] EDMS Marita Durbin, RN RN kmg1 Misael Baig RN RN Herminio Ace LPN LPN rw1 Kanu Harris, GIL DRAIN TILER kb5 Fiddler, Marco, Reg Reg kf3 Eric, Bruna mt4 Alfreda Vargas RN RN ld5 Elham Thompson Michael, PA PA mo1 Fred Alvarez,RN RN jf3 Italia Carvalho Corrections: (The following items were deleted from the chart) 00:15 00:14 Reassessment: Patient appears in no apparent distress at this time. Patient rw1 denies pain at this time. Patient states feeling better. rw1 Chart Complete MTDD
--- NOTE | 2016-05-17 01:18 | EDDOCDS ---
Physician Documentation [facility] Name: Dione Cohpra Age: 31 yrs Sex: Female : 1985 Arrival Date: 05/14/2016 Time: 19:41 Bed I5 / M5 Private MD: Arvin Herring M Disposition: 05/15/16 00:00 Discharged to Home/Self Care. Impression: Generalized abdominal pain, Iron deficiency anemia. - Condition is Stable. - Discharge Instructions: Abdominal Pain, Adult, Iron Deficiency Anemia, Adult. - Medication Reconciliation, Local Pharmacy Hours form. - Follow up: Arvin Herring; When: Call to arrange an appointment; Reason: Recheck today's complaints, Continuance of care. - Problem is new. - Symptoms are unchanged. Historical: - Allergies: Latex; - Home Meds: 1. Valtrex Oral as needed - PMHx: Herpes; Obesity; - PSHx: Cholecystectomy; Tubal ligation (March 2010); Tonsillectomy; Kidney Stent- Right; - Social history: Smoking status: Patient states was never smoker of tobacco. No barriers to communication noted, The patient speaks fluent Burundian, Speaks appropriately for age. - Family history: Not pertinent. - : The pt / caregiver states he / she is not on anticoagulants. Home medication list is obtained from the patient, [employer] import data. - Exposure Risk Screening:: None identified. 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 6 in. (167.64 cm) (R); Pain 7/10; 22:29 BP 113 / 58; Pulse 72; Resp 16; Temp 97.5(O); Pulse Ox 99% on R/A; Pain 3/10; sew 05/15 00:11 BP 110 / 60; Pulse 70; Resp 18; Temp 98.9(TE); Pulse Ox 98% on R/A; Pain 4/10; kb5 05/14 19:43 Body Mass Index 28.25 (79.38 kg, 167.64 cm) mt4 MDM: 05/14 19:55 UCG by Nursing ordered. dt4 19:57 Urinalysis Ordered. EDMS 19:57 Urine Culture Ordered. EDMS 22:41 Urinalysis Reviewed. mo1 22:52 Amylase Ordered. EDMS 22:52 Basic Metabolic Profile Ordered. EDMS 22:52 CBC with Diff Ordered. EDMS 22:52 Lipase Ordered. EDMS 22:52 Liver Profile Ordered. EDMS 22:52 Abdomen 2 View Ordered. EDMS 22:52 NOTHING BY MOUTH+DIET ordered. EDMS 23:17 [facility] Payment Agreement was scanned into [employer] and attached to record. gjb 23:17 Financial registration complete. gjb 23:35 Amylase Reviewed. mo1 23:35 Basic Metabolic Profile Reviewed. mo1 23:35 CBC with Diff Reviewed. mo1 23:36 Liver Profile Reviewed. mo1 23:36 Lipase Reviewed. mo1 23:40 RBC MORPH PROF NO CHARGE Reviewed. mo1 23:43 CBC with Diff Reviewed. mo1 23:43 RBC MORPH PROF NO CHARGE Reviewed. mo1 05/15 00:03 FERRITIN Ordered. EDMS 14:21 T-Sheet-- Draft Copy was scanned into [employer] and attached to record. kf3 Point of Care Testing: Urine : 05/14 20:22 hCG Reading: Negative; Control Reading: Positive; sew Ranges: Signatures: Dispatcher [employer] EDMarita Singh RN RN kmg1 Herminio Downs LPN NAILING MACHINE OPERATOR AUTOMATIC rw1 Marco Craft, Reg Reg kf3 Alfreda Vargas RN RN ld5 William Woodward PA PA mo1 Lisandra Nicholson PA-C PATyshawn dt4 Italia Carvalho The chart was reviewed and I authenticate all verbal orders and agree with the evaluation and treatment provided.Corrections: (The following items were deleted from the chart) 05/15 00:03 05/14 23:58 TOTAL IRON BINDING CAPACIT+LAB ordered. EDMS EDMS 05/15 00:03 05/14 23:58 FERRITIN+LAB ordered. EDMS EDMS 05/15 00:03 05/14 23:58 IRON (FE)+LAB ordered. EDMS EDMS Attachments: 23:17 [facility] Payment Agreement gj 05/15 14:21 T-Sheet-- Draft Copy kf3 Chart Complete MTDD
--- NOTE | 2016-05-17 01:18 | EDDOCDS ---
Physician Documentation [facility] Name: Dione Chopra Age: 31 yrs Sex: Female : 1985 Arrival Date: 05/14/2016 Time: 19:41 Bed I5 / M5 Private MD: Arvin Herring M Disposition: 05/15/16 00:00 Discharged to Home/Self Care. Impression: Generalized abdominal pain, Iron deficiency anemia. - Condition is Stable. - Discharge Instructions: Abdominal Pain, Adult, Iron Deficiency Anemia, Adult. - Medication Reconciliation, Local Pharmacy Hours form. - Follow up: Arvin Herring; When: Call to arrange an appointment; Reason: Recheck today's complaints, Continuance of care. - Problem is new. - Symptoms are unchanged. Historical: - Allergies: Latex; - Home Meds: 1. Valtrex Oral as needed - PMHx: Herpes; Obesity; - PSHx: Cholecystectomy; Tubal ligation (March 2010); Tonsillectomy; Kidney Stent- Right; - Social history: Smoking status: Patient states was never smoker of tobacco. No barriers to communication noted, The patient speaks fluent Norwegian, Speaks appropriately for age. - Family history: Not pertinent. - : The pt / caregiver states he / she is not on anticoagulants. Home medication list is obtained from the patient, [employer] import data. - Exposure Risk Screening:: None identified. 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 6 in. (167.64 cm) (R); Pain 7/10; 22:29 BP 113 / 58; Pulse 72; Resp 16; Temp 97.5(O); Pulse Ox 99% on R/A; Pain 3/10; sew 05/15 00:11 BP 110 / 60; Pulse 70; Resp 18; Temp 98.9(TE); Pulse Ox 98% on R/A; Pain 4/10; kb5 05/14 19:43 Body Mass Index 28.25 (79.38 kg, 167.64 cm) mt4 MDM: 05/14 19:55 UCG by Nursing ordered. dt4 19:57 Urinalysis Ordered. EDMS 19:57 Urine Culture Ordered. EDMS 22:41 Urinalysis Reviewed. mo1 22:52 Amylase Ordered. EDMS 22:52 Basic Metabolic Profile Ordered. EDMS 22:52 CBC with Diff Ordered. EDMS 22:52 Lipase Ordered. EDMS 22:52 Liver Profile Ordered. EDMS 22:52 Abdomen 2 View Ordered. EDMS 22:52 NOTHING BY MOUTH+DIET ordered. EDMS 23:17 [facility] Payment Agreement was scanned into [employer] and attached to record. gjb 23:17 Financial registration complete. gjb 23:35 Amylase Reviewed. mo1 23:35 Basic Metabolic Profile Reviewed. mo1 23:35 CBC with Diff Reviewed. mo1 23:36 Liver Profile Reviewed. mo1 23:36 Lipase Reviewed. mo1 23:40 RBC MORPH PROF NO CHARGE Reviewed. mo1 23:43 CBC with Diff Reviewed. mo1 23:43 RBC MORPH PROF NO CHARGE Reviewed. mo1 05/15 00:03 FERRITIN Ordered. EDMS 14:21 T-Sheet-- Draft Copy was scanned into [employer] and attached to record. kf3 Point of Care Testing: Urine : 05/14 20:22 hCG Reading: Negative; Control Reading: Positive; sew Ranges: Signatures: Dispatcher [employer] EDMarita Singh RN RN kmg1 Herminio Donws LPN COOK MANAGER rw1 Marco Craft, Reg Reg kf3 Alfreda Vargas RN RN ld5 William Woodward PA PA mo1 Lisandra Nicholson PA-C PATyshawn dt4 Italia Carvalho The chart was reviewed and I authenticate all verbal orders and agree with the evaluation and treatment provided.Corrections: (The following items were deleted from the chart) 05/15 00:03 05/14 23:58 TOTAL IRON BINDING CAPACIT+LAB ordered. EDMS EDMS 05/15 00:03 05/14 23:58 FERRITIN+LAB ordered. EDMS EDMS 05/15 00:03 05/14 23:58 IRON (FE)+LAB ordered. EDMS EDMS Attachments: 23:17 [facility] Payment Agreement gj 05/15 14:21 T-Sheet-- Draft Copy kf3 Chart Complete MTDD
== END 2016-05-15 00:16 | disposition home or self-care (01) ==
LOC: M ED 19:41
DX: R10.84 Generalized abdominal pain (principal); D50.9 Iron deficiency anemia, unspecified; B00.9 Herpesviral infection, unspecified; E66.9 Obesity, unspecified; Z91.040 Latex allergy status

== ENCOUNTER 2016-05-25 08:36 | Outpatient (CLI) | payer OTHER ==
[~2016-05-25] VITALS: Ht 167.6 cm; Wt 82.7 kg
[2016-05-25] MEDS ORDERED: IRON SUCROSE 25 MG in NS 50 ML IV ONE (09:30)
[2016-05-25] MEDS ORDERED: IRON SUCROSE 475 MG in NS 250 ML IV ONE (10:30)
[2016-05-25] MEDS ORDERED: CHIL1CHW3 PO (17:16)
[2016-05-25] MEDS ORDERED: VITA50TA15 PO (17:16)
[2016-05-25] MEDS ORDERED: IRON65TA PO (17:16)
[2016-05-25] MEDS ORDERED: CALC250T PO (17:16)
== END 2016-05-25 14:05 | disposition home or self-care (01) ==
LOC: M INFU 08:36
PROVIDERS: ATTEND Physician Assistant
DX: D50.9 Iron deficiency anemia, unspecified (principal); Z91.040 Latex allergy status; Z88.7 Allergy status to serum and vaccine; Z79.899 Other long term (current) drug therapy
CPT/HCPCS: 96365; 96366; J1756

== ENCOUNTER → 2016-06-01 | Outpatient (REF) | payer OTHER ==
[~2016-06-01] MED LIST changes: +CALC250T PO; +CHIL1CHW3 PO; +IRON65TA PO; +VITA50TA15 PO
[2016-06-01 13:31] LABS: WHITE BLOOD COUNT 3.9 K/mm3 (4.0-10.0)
[2016-06-01 13:32] LABS: BASO % 0.3 % (0.0-1.0); EOS % 1.6 % (0.0-3.0); LARGE UNSTAINED CELL % 2.9 % (0.0-4.0); LYMPH % 33.7 % (24.0-44.0); MEAN CORPUSCULAR HEMOGLOBIN 22.2 pg (27.0-33.0); MEAN CORPUSCULAR HGB CONC 28.2 g/dl (32.0-36.5); MEAN CORPUSCULAR VOLUME 78.7 fl (80.0-96.0); MONO % 4.9 % (0.0-5.0); NEUTROPHILS % 56.6 % (36.0-66.0); PLATELET COUNT, AUTOMATED 218 k/mm3 (150-450); RED CELL DISTRIBUTION WIDTH 22.8 % (11.5-14.5)
[2016-06-01 13:33] LABS: ADD MORPHOLOGY? YES; EOS # 0.1 K/mm3 (0.0-0.50); LARGE UNSTAINED CELL # 0.1 K/mm3 (0.0-0.4); LYMPH # 1.3 K/mm3 (1.5-4.5); MONO # 0.2 K/mm3 (0.0-0.8); NEUTROPHILS # 2.2 K/mm3 (1.8-7.7)
[2016-06-01 13:51] LABS: ANISOCYTOSIS 3+; HYPOCHROMASIA 3+; MICROCYTOSIS 3+; OVALOCYTES 2+
== END ==
LOC: M SFHCPLAZ 11:04
PROVIDERS: ATTEND Physician Assistant
DX: D50.9 Iron deficiency anemia, unspecified (principal)

== ENCOUNTER → 2016-06-06 | Outpatient (REF) | payer OTHER ==
[2016-06-06 13:01] LABS: MEAN CORPUSCULAR HEMOGLOBIN 23.1 pg (27.0-33.0); MEAN CORPUSCULAR HGB CONC 28.7 g/dl (32.0-36.5); MEAN CORPUSCULAR VOLUME 80.2 fl (80.0-96.0); PLATELET COUNT, AUTOMATED 195 k/mm3 (150-450); RED CELL DISTRIBUTION WIDTH 22.2 % (11.5-14.5); WHITE BLOOD COUNT 3.3 K/mm3 (4.0-10.0)
[2016-06-06 13:10] LABS: PERCENT SATURATION 6.8 % (13.2-37.4)
[2016-06-06 13:35] LABS: ANISOCYTOSIS 2+; EOSINOPHILS 2 % (0-5); HYPOCHROMASIA 2+
== END ==
LOC: M SFHCPLAZ 08:00
PROVIDERS: ATTEND Physician Assistant
DX: D50.9 Iron deficiency anemia, unspecified (principal)

== ENCOUNTER → 2017-04-13 | Outpatient (CLI) | payer OTHER ==
[~2017-04-13] MED LIST changes: +LEVA1TAB2 PO; -LEVA500T PO
[2017-04-13 13:18] LABS: MEAN CORPUSCULAR HEMOGLOBIN 17.9 pg (27.0-33.0); MEAN CORPUSCULAR HGB CONC 26.7 g/dl (32.0-36.5); MEAN CORPUSCULAR VOLUME 66.8 fl (80.0-96.0); PLATELET COUNT, AUTOMATED 137 10^3/uL (150-450); RED CELL DISTRIBUTION WIDTH 18.5 % (11.5-14.5); WHITE BLOOD COUNT 3.7 10^3/uL (4.0-10.0)
[2017-04-13 13:44] LABS: FOLATE 12.6 NG/ML (>5.4)
[2017-04-13 13:46] LABS: ALBUMIN 3.6 GM/DL (3.2-5.2); ALBUMIN/GLOBULIN RATIO 1.03 (1.00-1.93); ALKALINE PHOSPHATASE 49 U/L (45-117); ALT/SGPT 12 U/L (12-78); ANION GAP 8 MEQ/L (8-16); AST/SGOT 6 U/L (7-37); BILIRUBIN,TOTAL 0.5 MG/DL (0.2-1.0); BLOOD UREA NITROGEN 12 MG/DL (7-18); CALCIUM LEVEL 8.2 MG/DL (8.5-10.1); CARBON DIOXIDE LEVEL 27 MEQ/L (21-32); CHLORIDE LEVEL 107 MEQ/L (98-107); FERRITIN 1 NG/ML (8-252); GLOMERULAR FILTRATION RATE > 60.0 (>60); GLUCOSE, FASTING 81 MG/DL (70-105); PERCENT SATURATION 2.9 % (13.2-45.0); POTASSIUM SERUM 3.9 MEQ/L (3.5-5.1); SODIUM LEVEL 142 MEQ/L (136-145); TOTAL IRON BINDING CAPACITY 525 UG/DL (250-450); TOTAL PROTEIN 7.1 GM/DL (6.4-8.2)
[2017-04-13 14:12] LABS: VITAMIN B12 LEVEL 353 PG/ML (247-911)
== END ==
LOC: M WUC 08:28
PROVIDERS: ATTEND Nurse Practitioner Adult Health
DX: N20.1 Calculus of ureter (principal); D50.9 Iron deficiency anemia, unspecified; E66.9 Obesity, unspecified; Z98.84 Bariatric surgery status

== ENCOUNTER 2017-04-14 08:14 | Outpatient (CLI) | payer OTHER ==
[~2017-04-14] VITALS: Ht 167.6 cm; Wt 82.7 kg
[2017-04-14] MEDS ORDERED: IRON SUCROSE 25 MG in NS 50 ML IV ONE (08:30)
[2017-04-14] MEDS ORDERED: IRON SUCROSE 475 MG in NS 250 ML IV ONE (09:30)
== END 2017-04-14 13:20 | disposition home or self-care (01) ==
LOC: M INFU 08:14
PROVIDERS: ATTEND Nurse Practitioner Adult Health
DX: D50.9 Iron deficiency anemia, unspecified (principal); Z88.7 Allergy status to serum and vaccine; Z91.040 Latex allergy status; Z79.899 Other long term (current) drug therapy
CPT/HCPCS: 96365; 96366; J1756

== ENCOUNTER 2017-04-21 07:42 | Outpatient (CLI) | payer OTHER ==
[2017-04-21] MEDS: IRON SUCROSE 25 MG in NS 50 ML IV (08:21)
[2017-04-21] MEDS: IRON SUCROSE 475 MG in NS 250 ML IV (09:15)
== END 2017-04-21 12:40 | disposition home or self-care (01) ==
LOC: M INFU 07:42
DX: D50.9 Iron deficiency anemia, unspecified (principal); Z98.84 Bariatric surgery status; Z97.8 Presence of other specified devices; Z91.040 Latex allergy status; Z88.7 Allergy status to serum and vaccine; Z79.899 Other long term (current) drug therapy
CPT/HCPCS: 96365

== ENCOUNTER → 2017-04-27 | Outpatient (CLI) | payer OTHER ==
[2017-04-27 12:27] LABS: HEMATOCRIT 32.1 % (36.0-47.0); HEMOGLOBIN 8.5 g/dl (12.0-16.0); MEAN CORPUSCULAR HGB CONC 26.5 g/dl (32.0-36.5); MEAN CORPUSCULAR VOLUME 75.5 fl (80.0-96.0); PLATELET COUNT, AUTOMATED 249 10^3/uL (150-450); RED BLOOD COUNT 4.25 10^6/uL (4.00-5.40); WHITE BLOOD COUNT 3.6 10^3/uL (4.0-10.0)
[2017-04-27 12:58] LABS: FOLATE 14.1 NG/ML (>5.4)
[2017-04-27 13:00] LABS: FERRITIN 32 NG/ML (8-252); IRON (FE) 100 UG/DL (50-170); PERCENT SATURATION 21.5 % (13.2-45.0); TOTAL IRON BINDING CAPACITY 466 UG/DL (250-450)
== END ==
LOC: M LAB 11:10
DX: D50.9 Iron deficiency anemia, unspecified (principal)
CPT/HCPCS: 82746

== ENCOUNTER → 2017-05-16 | Outpatient (REF) | payer OTHER ==
[2017-05-16 12:39] LABS: HEMATOCRIT 36.9 % (36.0-47.0); HEMOGLOBIN 10.4 g/dl (12.0-16.0); MEAN CORPUSCULAR HEMOGLOBIN 22.2 pg (27.0-33.0); MEAN CORPUSCULAR HGB CONC 28.2 g/dl (32.0-36.5); MEAN CORPUSCULAR VOLUME 78.8 fl (80.0-96.0); PLATELET COUNT, AUTOMATED 143 10^3/uL (150-450); RED BLOOD COUNT 4.68 10^6/uL (4.00-5.40); RED CELL DISTRIBUTION WIDTH 27.2 % (11.5-14.5); WHITE BLOOD COUNT 4.8 10^3/uL (4.0-10.0)
[2017-05-16 13:11] LABS: FOLATE 11.5 NG/ML (>5.4)
[2017-05-16 13:29] LABS: FERRITIN 12 NG/ML (8-252); IRON (FE) 43 UG/DL (50-170); PERCENT SATURATION 10.3 % (13.2-45.0); TOTAL IRON BINDING CAPACITY 417 UG/DL (250-450)
== END ==
LOC: M SFHCPLAZ 08:40
DX: D50.9 Iron deficiency anemia, unspecified (principal)

== ENCOUNTER → 2017-07-19 | Outpatient (REF) | payer OTHER ==
[2017-07-19 12:03] LABS: HEMATOCRIT 30.9 % (36.0-47.0); HEMOGLOBIN 9.1 g/dl (12.0-16.0); MEAN CORPUSCULAR HEMOGLOBIN 23.6 pg (27.0-33.0); MEAN CORPUSCULAR HGB CONC 29.4 g/dl (32.0-36.5); MEAN CORPUSCULAR VOLUME 80.1 fl (80.0-96.0); PLATELET COUNT, AUTOMATED 196 10^3/uL (150-450); RED BLOOD COUNT 3.86 10^6/uL (4.00-5.40); RED CELL DISTRIBUTION WIDTH 16.3 % (11.5-14.5)
[2017-07-19 12:29] LABS: FERRITIN 2 NG/ML (8-252); IRON (FE) 18 UG/DL (50-170); PERCENT SATURATION 4.1 % (13.2-45.0); TOTAL IRON BINDING CAPACITY 440 UG/DL (250-450)
[2017-07-19 12:31] LABS: TOTAL 25(OH) VITAMIN D 15.9 NG/ML (30.0-100.0); VITAMIN B12 LEVEL 675 PG/ML (247-911)
== END ==
LOC: M SFHCPLAZ 09:43
DX: Z98.84 Bariatric surgery status (principal); D50.9 Iron deficiency anemia, unspecified; E55.9 Vitamin D deficiency, unspecified; E53.8 Deficiency of other specified B group vitamins
CPT/HCPCS: 83550

== ENCOUNTER 2017-08-18 12:19 | Outpatient (CLI) | payer OTHER ==
[2017-08-18] MEDS: IRON SUCROSE 25 MG in NS 50 ML IV (13:13)
[2017-08-18] MEDS: IRON SUCROSE 475 MG in NS 250 ML IV (14:18)
== END 2017-08-18 18:00 | disposition home or self-care (01) ==
LOC: M INFU 12:19
DX: D50.9 Iron deficiency anemia, unspecified (principal); Z91.041 Radiographic dye allergy status; Z98.84 Bariatric surgery status; Z79.899 Other long term (current) drug therapy
CPT/HCPCS: J1756

== ENCOUNTER → 2018-01-17 | Outpatient (REF) | payer OTHER ==
[2018-01-17 15:30] LABS: HEMATOCRIT 29.7 % (36.0-47.0); HEMOGLOBIN 8.8 g/dl (12.0-15.5); MEAN CORPUSCULAR HEMOGLOBIN 24.4 pg (27.0-33.0); MEAN CORPUSCULAR HGB CONC 29.6 g/dl (32.0-36.5); MEAN CORPUSCULAR VOLUME 82.5 fl (80.0-96.0); PLATELET COUNT, AUTOMATED 231 10^3/uL (150-450); RED CELL DISTRIBUTION WIDTH 16.3 % (11.5-14.5); WHITE BLOOD COUNT 4.6 10^3/uL (4.0-10.0)
[2018-01-17 16:00] LABS: FERRITIN 1 NG/ML (8-252); IRON (FE) 15 UG/DL (50-170); PERCENT SATURATION 3.4 % (13.2-45.0); TOTAL IRON BINDING CAPACITY 443 UG/DL (250-450)
[2018-01-17 16:03] LABS: TOTAL 25(OH) VITAMIN D 12.9 NG/ML (30.0-100.0)
== END ==
LOC: M SFHCPLAZ 14:24
DX: E53.8 Deficiency of other specified B group vitamins (principal); Z98.84 Bariatric surgery status; D50.9 Iron deficiency anemia, unspecified; E55.9 Vitamin D deficiency, unspecified

== ENCOUNTER 2018-07-31 12:48 | Emergency (ER) | payer OTHER ==
[~2018-07-31] VITALS: Ht 165.1 cm; Wt 88.2 kg
[~2018-07-31 12:48] MED LIST changes: +HYDR-3715 PO; -NORCOTAB PO
[2018-07-31 15:00] LABS: ALBUMIN 3.7 GM/DL (3.2-5.2); ALT/SGPT 16 U/L (12-78); BASO % 0.5 % (0.0-1.0); BILIRUBIN,DIRECT < 0.1 MG/DL (0.0-0.2); BILIRUBIN,TOTAL 0.2 MG/DL (0.2-1.0); BLOOD UREA NITROGEN 9 MG/DL (7-18); CALCIUM LEVEL 8.3 MG/DL (8.5-10.1); CARBON DIOXIDE LEVEL 26 MEQ/L (21-32); CHLORIDE LEVEL 108 MEQ/L (98-107); CREATININE FOR GFR 0.61 MG/DL (0.55-1.30); EOS # 0.1 10^3/uL (0.0-0.50); EOS % 1.1 % (0.0-3.0); GLOMERULAR FILTRATION RATE > 60.0 (>60); GLUCOSE, FASTING 83 MG/DL (70-100); HCG, SERUM QUALITATIVE NEGATIVE (NEGATIVE); HEMATOCRIT 25.3 % (36.0-47.0); LIPASE 161 U/L (73-393); LYMPH # 1.8 10^3/uL (1.5-4.5); LYMPH % 31.1 % (24.0-44.0); MEAN CORPUSCULAR HEMOGLOBIN 18.7 pg (27.0-33.0); MEAN CORPUSCULAR HGB CONC 26.5 g/dl (32.0-36.5); MEAN CORPUSCULAR VOLUME 70.7 fl (80.0-96.0); MONO # 0.5 10^3/uL (0.0-0.8); MONO % 8.8 % (0.0-5.0); NEUTROPHILS # 3.3 10^3/uL (1.8-7.7); NEUTROPHILS % 58.3 % (36.0-66.0); PLATELET COUNT, AUTOMATED 233 10^3/uL (150-450); POTASSIUM SERUM 4.1 MEQ/L (3.5-5.1); RED BLOOD COUNT 3.58 10^6/uL (4.00-5.40); SODIUM LEVEL 140 MEQ/L (136-145); TOTAL PROTEIN 6.7 GM/DL (6.4-8.2); WHITE BLOOD COUNT 5.7 10^3/uL (4.0-10.0)
[2018-07-31 15:03] LABS: HEMOGLOBIN 6.7 g/dl (12.0-15.5)
[2018-07-31 15:46] LABS: FERRITIN 1 NG/ML (8-252); IRON (FE) 12 UG/DL (50-170); PERCENT SATURATION 2.5 % (13.2-45.0); TOTAL IRON BINDING CAPACITY 478 UG/DL (250-450)
[2018-07-31 17:34] VITALS: BP 120/70
== END 2018-07-31 20:45 | disposition home or self-care (01) ==
LOC: M ED 12:48
DX: D50.9 Iron deficiency anemia, unspecified (principal); G51.0 Bell's palsy; Z98.84 Bariatric surgery status; Z96.0 Presence of urogenital implants; Z79.899 Other long term (current) drug therapy; Z88.7 Allergy status to serum and vaccine; Z91.040 Latex allergy status
CPT/HCPCS: 80048; 80076; 81001; 82728; 83550; 83690; 84466; 84703; 85025; 86850; 86900; 86901; 86920; 87086; 99284; P9016

== ENCOUNTER 2018-08-05 17:32 | Emergency (ER) | payer OTHER ==
[~2018-08-05] VITALS: Ht 165.1 cm; Wt 86.4 kg
[2018-08-05] MEDS ORDERED: NS 1,000 ML IV ONE (18:15)
[2018-08-05] MEDS ORDERED: ACETAMINOPHEN TAB 650MG DOSE (2X325MG) PO ONE (18:15)
[2018-08-05 18:23] LABS: HEMATOCRIT 29.5 % (36.0-47.0); HEMOGLOBIN 8.1 g/dl (12.0-15.5); MEAN CORPUSCULAR HEMOGLOBIN 20.2 pg (27.0-33.0); MEAN CORPUSCULAR HGB CONC 27.5 g/dl (32.0-36.5); MEAN CORPUSCULAR VOLUME 73.6 fl (80.0-96.0); PLATELET COUNT, AUTOMATED 159 10^3/uL (150-450); RED BLOOD COUNT 4.01 10^6/uL (4.00-5.40); WHITE BLOOD COUNT 5.8 10^3/uL (4.0-10.0)
[2018-08-05 18:46] LABS: HCG, SERUM QUALITATIVE NEGATIVE (NEGATIVE)
[2018-08-05 18:47] LABS: BLOOD UREA NITROGEN 13 MG/DL (7-18); CALCIUM LEVEL 7.7 MG/DL (8.5-10.1); CARBON DIOXIDE LEVEL 26 MEQ/L (21-32); CHLORIDE LEVEL 110 MEQ/L (98-107); CREATININE FOR GFR 0.62 MG/DL (0.55-1.30); GLOMERULAR FILTRATION RATE > 60.0 (>60); GLUCOSE, FASTING 56 MG/DL (70-100); POTASSIUM SERUM 3.7 MEQ/L (3.5-5.1); SODIUM LEVEL 141 MEQ/L (136-145)
[2018-08-05 19:37] LABS: INFLUENZA A AMPLIFICATION NEGATIVE (NEGATIVE); INFLUENZA B AMPLIFICATION NEGATIVE (NEGATIVE)
[2018-08-05 20:16] LABS: APPEARANCE, URINE CLEAR (CLEAR); BACTERIA, URINE AUTO NEGATIVE (NEGATIVE); BILIRUBIN, URINE AUTO NEGATIVE (NEGATIVE); BLOOD, URINE BLOOD NEGATIVE (NEGATIVE); COLOR, URINE YELLOW (YELLOW); GLUCOSE, URINE (UA) AUTO NEGATIVE (NEGATIVE); KETONE, URINE AUTO NEGATIVE (NEGATIVE); LEUKOCYTE ESTERASE, URINE AUTO TRACE (NEGATIVE); MUCUS, URINE SMALL (NEGATIVE); NITRITE, URINE AUTO NEGATIVE (NEGATIVE); PROTEIN, URINE AUTO NEGATIVE (NEGATIVE); RBC, URINE AUTO 0 /HPF (0-3); SPECIFIC GRAVITY URINE AUTO 1.018 (1.002-1.035); SQUAMOUS EPITHELIAL CELL UR AU 1 /HPF (0-6); WBC, URINE AUTO 4 /HPF (0-3)
[2018-08-05 20:47] VITALS: BP 100/53
== END 2018-08-05 20:54 | disposition home or self-care (01) ==
LOC: M ED 17:32
DX: D50.9 Iron deficiency anemia, unspecified (principal); E16.2 Hypoglycemia, unspecified; B02.9 Zoster without complications; Z86.69 Personal history of other diseases of the nervous system and sense organs; Z87.442 Personal history of urinary calculi; Z98.84 Bariatric surgery status; Z79.899 Other long term (current) drug therapy; Z88.7 Allergy status to serum and vaccine; Z91.040 Latex allergy status

== ENCOUNTER 2018-08-09 12:50 | Outpatient (CLI) | payer OTHER ==
[~2018-08-09] VITALS: Ht 165.1 cm; Wt 86.4 kg
[2018-08-09] VITALS (7 sets, daily range): BP systolic 90–108; BP diastolic 46–60
[2018-08-09] MEDS ORDERED: ACETAMINOPHEN TAB 650MG DOSE (2X325MG) PO ONE (13:30)
[2018-08-09] MEDS ORDERED: diphenhydrAMINE 25 MG CAP PO ONE (13:30)
[2018-08-09] MEDS ORDERED: B-122500 PO (18:22)
[2018-08-09] MEDS ORDERED: DRIS50003 PO (18:23)
[2018-08-09] MEDS ORDERED: CALC500T44 PO (18:24)
== END 2018-08-09 18:45 | disposition home or self-care (01) ==
LOC: M INFU 12:50
PROVIDERS: ATTEND Nurse Practitioner Adult Health
DX: D64.9 Anemia, unspecified (principal); Z91.040 Latex allergy status
CPT/HCPCS: 36415; 36430; 86850; 86900; 86901; 86920; P9016

== ENCOUNTER 2018-08-10 20:01 | Emergency (ER) | payer OTHER ==
[~2018-08-10] VITALS: Ht 167.6 cm; Wt 88.6 kg
[~2018-08-10 20:01] MED LIST changes: +B-122500 PO; +CALC500T44 PO; +DRIS50003 PO
[2018-08-10 20:02] VITALS: BP 120/61
== END 2018-08-10 22:13 | disposition home or self-care (01) ==
LOC: M ED 20:01
DX: J02.9 Acute pharyngitis, unspecified (principal); D50.9 Iron deficiency anemia, unspecified; Z98.84 Bariatric surgery status; Z79.899 Other long term (current) drug therapy; Z88.7 Allergy status to serum and vaccine; Z91.040 Latex allergy status

== ENCOUNTER 2018-08-23 10:25 | Outpatient (CLI) | payer OTHER ==
[~2018-08-23] VITALS: Ht 162.8 cm; Wt 86.4 kg
[2018-08-23] VITALS (7 sets, daily range): BP systolic 91–107; BP diastolic 45–56
[2018-08-23] MEDS ORDERED: IRON SUCROSE 25 MG in NS 50 ML IV ONE (10:45)
[2018-08-23] MEDS ORDERED: IRON SUCROSE 475 MG in NS 250 ML IV ONE (10:45)
== END 2018-08-23 15:50 | disposition home or self-care (01) ==
LOC: M INFU 10:25
PROVIDERS: ATTEND Nurse Practitioner Adult Health
DX: D50.9 Iron deficiency anemia, unspecified (principal); Z91.040 Latex allergy status
CPT/HCPCS: 96365; 96366; J1756

== ENCOUNTER 2018-12-12 13:42 | Emergency (ER) | payer OTHER ==
[~2018-12-12] VITALS: Ht 165.1 cm; Wt 86.4 kg
[2018-12-12 14:20] LABS: BASO % 0.8 % (0.0-1.0); EOS # 0.1 10^3/uL (0.0-0.50); EOS % 1.1 % (0.0-3.0); HEMATOCRIT 29.8 % (36.0-47.0); HEMOGLOBIN 8.7 g/dl (12.0-15.5); LYMPH # 1.4 10^3/uL (1.5-4.5); LYMPH % 26.5 % (24.0-44.0); MEAN CORPUSCULAR HEMOGLOBIN 22.7 pg (27.0-33.0); MEAN CORPUSCULAR HGB CONC 29.2 g/dl (32.0-36.5); MEAN CORPUSCULAR VOLUME 77.8 fl (80.0-96.0); MONO # 0.5 10^3/uL (0.0-0.8); NEUTROPHILS # 3.2 10^3/uL (1.8-7.7); NEUTROPHILS % 61.2 % (36.0-66.0); PLATELET COUNT, AUTOMATED 186 10^3/uL (150-450); RED BLOOD COUNT 3.83 10^6/uL (4.00-5.40); WHITE BLOOD COUNT 5.3 10^3/uL (4.0-10.0)
[2018-12-12 14:53] LABS: ALBUMIN 3.7 GM/DL (3.2-5.2); ALT/SGPT 14 U/L (12-78); BILIRUBIN,DIRECT < 0.1 MG/DL (0.0-0.2); BILIRUBIN,TOTAL < 0.1 MG/DL (0.2-1.0); BLOOD UREA NITROGEN 11 MG/DL (7-18); CALCIUM LEVEL 8.3 MG/DL (8.5-10.1); CARBON DIOXIDE LEVEL 28 MEQ/L (21-32); CHLORIDE LEVEL 110 MEQ/L (98-107); CREATININE FOR GFR 0.63 MG/DL (0.55-1.30); FERRITIN 3 NG/ML (8-252); GLOMERULAR FILTRATION RATE > 60.0 (>60); GLUCOSE, FASTING 74 MG/DL (70-100); IRON (FE) 18 UG/DL (50-170); LIPASE 174 U/L (73-393); POTASSIUM SERUM 3.8 MEQ/L (3.5-5.1); SODIUM LEVEL 142 MEQ/L (136-145); TOTAL PROTEIN 7.1 GM/DL (6.4-8.2)
[2018-12-12 16:58] VITALS: BP 114/61
== END 2018-12-12 17:04 | disposition home or self-care (01) ==
LOC: M ED 13:42
DX: D50.9 Iron deficiency anemia, unspecified (principal); Z98.84 Bariatric surgery status; Z79.899 Other long term (current) drug therapy; Z88.7 Allergy status to serum and vaccine; Z91.040 Latex allergy status

== ENCOUNTER → 2019-02-15 | Outpatient (REF) | payer OTHER ==
[~2019-02-15] MED LIST changes: +DICY10CA13 PO; +IRON65TA2 PO; +ONDA4TAB6 PO; +PATIENT COMMENTS
[2019-02-15 21:56] LABS: INFLUENZA A AMPLIFICATION NEGATIVE (NEGATIVE); INFLUENZA B AMPLIFICATION NEGATIVE (NEGATIVE)
== END ==
LOC: M LAB REF 09:27
PROVIDERS: ATTEND Physician Assistant
DX: J10.1 Influenza due to other identified influenza virus with other respiratory manifestations (principal)

== ENCOUNTER 2019-02-16 13:41 | Inpatient (IN) | payer OTHER ==
[~2019-02-16] VITALS: Ht 167.6 cm; Wt 92.0 kg
[2019-02-16] VITALS (9 sets, daily range): BP systolic 109–137; BP diastolic 52–80
[~2019-02-16 13:41] MED LIST changes: -DICY10CA13 PO; -IRON65TA2 PO; -ONDA4TAB6 PO; -PATIENT COMMENTS
[2019-02-16] MEDS ORDERED: diphenhydrAMINE INJ 50MG/ML VIAL (J1200) IV STA (14:02)
[2019-02-16] MEDS ORDERED: METOCLOPRAMIDE INJ 10MG/2ML VIAL (J2765) IV ONE (14:15)
[2019-02-16] MEDS ORDERED: KETOROLAC 30 MG/ML VIAL (J1885) IV ONE (14:15)
[2019-02-16] MEDS ORDERED: NS 1,000 ML IV ONE (14:15)
[2019-02-16 14:26] LABS: BASO % 0.5 % (0.0-1.0); EOS # 0.1 10^3/uL (0.0-0.5); EOS % 1.4 % (0.0-3.0); HEMATOCRIT 24.7 % (36.0-47.0); LYMPH # 1.2 10^3/uL (1.5-5.0); LYMPH % 18.3 % (24.0-44.0); MEAN CORPUSCULAR HEMOGLOBIN 19.8 pg (27.0-33.0); MEAN CORPUSCULAR HGB CONC 27.5 g/dl (32.0-36.5); MONO # 0.5 10^3/uL (0.0-0.8); MONO % 7.7 % (0.0-5.0); NEUTROPHILS # 4.7 10^3/uL (1.5-8.5); NEUTROPHILS % 71.8 % (36.0-66.0); PLATELET COUNT, AUTOMATED 270 10^3/uL (150-450); RED BLOOD COUNT 3.43 10^6/uL (4.00-5.40); WHITE BLOOD COUNT 6.5 10^3/uL (4.0-10.0)
[2019-02-16 14:35] LABS: HEMOGLOBIN 6.8 g/dl (12.0-15.5)
[2019-02-16 14:47] LABS: BLOOD UREA NITROGEN 14 MG/DL (7-18); C REACTIVE PROTEIN QUANTITATIV < 0.30 MG/DL (0.00-0.30); CARBON DIOXIDE LEVEL 26 MEQ/L (21-32); CHLORIDE LEVEL 110 MEQ/L (98-107); CREATININE FOR GFR 0.69 MG/DL (0.55-1.30); GLOMERULAR FILTRATION RATE > 60.0 (>60); GLUCOSE, FASTING 75 MG/DL (70-100); POTASSIUM SERUM 4.1 MEQ/L (3.5-5.1); SODIUM LEVEL 141 MEQ/L (136-145)
[2019-02-16] MEDS ORDERED: IRON65TA2 PO (15:13)
[2019-02-16] MEDS ORDERED: PATIENT COMMENTS (15:15)
[2019-02-16] MEDS ORDERED: ACETAMINOPHEN TAB 650MG DOSE (2X325MG) PO PRN (15:30)
[2019-02-16 15:50] LABS: FERRITIN 3 NG/ML (8-252); IRON (FE) 11 UG/DL (50-170); PERCENT SATURATION 2.1 % (13.2-45.0); TOTAL IRON BINDING CAPACITY 529 UG/DL (250-450)
[2019-02-16] MEDS ORDERED: FIORICET TAB PO ONE (16:00)
--- NOTE | 2019-02-16 16:24 | HPEPDOC ---
[facility] Medical History & Physical Date of Admission Feb 16, 2019 Date of Service: Feb 16, 2019 Primary Care Physician: Barbie Aggarwal Attending Physician: KANG HODGSON MD History and Physical CHIEF COMPLAINT: Headache, dizziness HISTORY OF PRESENT ILLNESS: Dione is a 34-year-old female who presents to the emergency room today complaining of migraine headache. She states she has intermittent headache which she describes as migraine. She has not been evaluated by a neurologist for this and is not on any long-term preventative for short-term supportive medication for this. She states her headache began about 5 days ago and has been worsening. She has associated light sensitivity, noise sensitivity, lightheadedness, dizziness, which is worse upon standing, nausea without vomiting, and fatigue. She denies any shortness of breath. She states she did go to urgent care yesterday for her headache and a shot of Toradol, but her symptoms have persisted. She has a history of iron deficiency anemia as well, which has required multiple blood transfusions and iron transfusions. She is prescribed a daily iron supplement, but admits that she is not good about taking this and has not taken it, at least over the past 4 days. She has also not taken her B12 vitamin and other vitamin supplements. Her last menstrual period was about a week ago. She states she does have heavy menses flow. She has received fluids, Reglan, Toradol, and Benadryl while in the emergency department today, which has provided some relief for her headache symptoms. PAST MEDICAL HISTORY: 1. Headaches 2. Iron deficiency anemia. 3. Calixto's palsy. 4. Kidney stones. 5. Herpes. PAST SURGICAL HISTORY: 1. Gastric bypass 2015 2.. Kidney stone removal and stenting 2014. 3. A cystectomy 2012. 4. Tubal ligation 2009. 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 REVIEW OF SYSTEMS: CONSTITUTIONAL: Endorses fatigue. Denies fevers, chills, night sweats. HEENT: Denies change in vision, change in hearing. CARDIOVASCULAR: Endorses lightheadedness. Denies chest pain, palpitations, shortness of breath. RESPIRATORY: Denies dyspnea, cough. GASTROINTESTINAL: Endorses nausea. Denies vomiting, abdominal pain, diarrhea, blood in stool. GENITOURINARY: Denies dysuria, urinary frequency. SKIN: Denies rash. MUSCULOSKELETAL: Denies joint pain or muscle aches. NEUROLOGICAL: Endorses headache, dizziness. Denies weakness. PSYCHIATRIC: Denies change in mood. HOME MEDICATIONS: Please see below. PHYSICAL EXAMINATION: VITAL SIGNS: See below GENERAL: Alert, comfortable, in no acute distress HEENT: Normocephalic, atraumatic, PERRLA, EOMI, moist mucous membranes NECK: Supple, trachea midline, no lymphadenopathy, no JVD CARDIOVASCULAR: Regular rate and rhythm, normal S1 and S2. No murmurs, rubs, or gallops RESPIRATORY: Clear to auscultation bilaterally with equal air entry bilaterally. No wheezing, rhonchi, or rales. ABDOMEN: Soft, nontender, nondistended, bowel sounds present, no masses or hepatosplenomegaly appreciated EXTREMITIES: No cyanosis or edema. Pulses 2+/4 in bilateral upper and lower extremities SKIN: [place], warm, dry NEUROLOGIC: Alert and oriented 3 [address] person, place and time. Cranial nerves 2-12 grossly intact. No focal deficits appreciated PSYCHIATRIC: Mood and affect appropriate LABORATORY DATA: See below. IMAGING: None MICROBIOLOGY: Please see below. ASSESSMENT: 34-year-old female who presented with 5 day history of headache, found to have symptomatic anemia, admitted for blood transfusion and further monitoring. PLAN: # Symptomatic anemia likely secondary to iron deficiency due to noncompliance with oral iron supplement. Patient's reported migraine symptoms are likely related to her anemia. Ordered iron studies to evaluate severity of her iron deficiency. Consider iron transfusion if indicated Transfuse 2 units PRBCs and recheck H/H # Headaches without diagnosis of migraine Patient received Reglan, Toradol, Benadryl, and fluids in the ED with some relief. Will try Fioricet to see if this improves her symptoms further. Expect patient symptoms will further improve with blood transfusion Suggest follow-up in the outpatient setting for migraine workup and consideration of preventative medication # Vitamin B12 deficiency -Continue home vitamin B12 supplement # DVT prophylaxis - Teds and SCDs, ambulation Disposition: Admitted for blood transfusion, pending clinical improvement and improvement of H/H, possible discharge tomorrow. Vital Signs Vital Signs Date Time Temp Pulse Resp B/P (MAP) Pulse Ox O2 Delivery O2 Flow Rate FiO2 02/16/19 15:38 79 18 131/61 (84) 100 Room Air 02/16/19 13:42 97.2 Laboratory Data Labs 24H Laboratory Tests 2 02/16/19 14:13: Immature Granulocyte % (Auto) 0.3, Neutrophils (%) (Auto) 71.8H, Lymphocytes (%) (Auto) 18.3L, Monocytes (%) (Auto) 7.7H, Eosinophils (%) (Auto) 1.4, Basophils (%) (Auto) 0.5, Neutrophils # (Auto) 4.7, Lymphocytes # (Auto) 1.2L, Monocytes # (Auto) 0.5, Eosinophils # (Auto) 0.1, Basophils # (Auto) 0.0, Reticulocyte # (auto) 46.6, Nucleated Red Blood Cells % (auto) 0.0, Percent Reticulocyte Count 1.4, Reticulocyte Hemoglobin Equivalent 14.4L, Anion Gap 5L, Glomerular Filtration Rate > 60.0, Calcium Level 8.0L, Iron Level 11L, Total Iron Binding Capacity 529H, Transferrin % Saturation 2.1L, Ferritin 3L, C-Reactive Protein, Quantitative < 0.30 CBC/BMP Laboratory Tests 02/16/19 14:13 Home Medications Scheduled Calcium Carbonate/Vitamin D3 (Calcium 500-Vit D3 200 Tablet) 1 Each Tablet, 1 TAB PO DAILY Cyanocobalamin (Vitamin B-12) (Vitamin B12) 2,500 Mcg Tablet, 2,500 MCG PO DAILY Ergocalciferol (Vitamin D2) (Drisdol) 50,000 Unit Capsule, 50,000 UNITS PO Q7D Ferrous Sulfate (Iron) 325 Mg Tablet, 325 MG PO TID Pedi Multivit No.25/Folic Acid (Child's Chewable Multivit Tab) 1 Chw Chw, 2 CHW PO DAILY Scheduled PRN Valacyclovir HCl (Valtrex) 500 Mg Tab, 2 TAB PO DAILYPRN PRN for HERPES Miscellaneous Medications [Patient Comments] PATIENT STATES SHE HAS NOT TAKEN HER MEDICATIONS FOR TWO DAYS Allergies Coded Allergies: Pertussis Vaccines (Verified Allergy, Intermediate, seizures, 07/31/18) latex (Verified Allergy, Intermediate, swelling, 07/31/18) A-FIB/CHADSVASC A-FIB History Current/History of A-Fib/PAF?: No MINI LOMBARDO PGY-1 Feb 16, 2019 16:24
[2019-02-16 22:15] LABS: HEMOGLOBIN 7.1 g/dl (12.0-15.5)
[2019-02-16] MEDS: FERROUS SULFATE 325MG TAB PO SCH (22:25)
[2019-02-17] VITALS (11 sets, daily range): BP systolic 108–137; BP diastolic 56–72
[2019-02-17 06:39] LABS: HEMOGLOBIN 7.6 g/dl (12.0-15.5); MEAN CORPUSCULAR HEMOGLOBIN 21.2 pg (27.0-33.0); MEAN CORPUSCULAR HGB CONC 29.2 g/dl (32.0-36.5); MEAN CORPUSCULAR VOLUME 72.6 fl (80.0-96.0); PLATELET COUNT, AUTOMATED 203 10^3/uL (150-450); RED BLOOD COUNT 3.58 10^6/uL (4.00-5.40); WHITE BLOOD COUNT 3.5 10^3/uL (4.0-10.0)
[2019-02-17 07:06] LABS: BLOOD UREA NITROGEN 15 MG/DL (7-18); CALCIUM LEVEL 7.7 MG/DL (8.5-10.1); CARBON DIOXIDE LEVEL 26 MEQ/L (21-32); CHLORIDE LEVEL 110 MEQ/L (98-107); CREATININE FOR GFR 0.51 MG/DL (0.55-1.30); GLOMERULAR FILTRATION RATE > 60.0 (>60); GLUCOSE, FASTING 83 MG/DL (70-100); SODIUM LEVEL 141 MEQ/L (136-145)
[2019-02-17] MEDS ORDERED: CYANOCOBALAMIN 500 MCG TAB PO SCH (09:00)
[2019-02-17] MEDS ORDERED: INFLUENZA QUADRIVALENT PF VACCINE 0.5ML SYRINGE (90686) IM ONE (09:00)
[2019-02-17] MEDS ORDERED: IRON65TA2 PO (09:30)
[2019-02-17] MEDS: FERROUS SULFATE 325MG TAB PO SCH (10:06)
[2019-02-17 15:12] LABS: HEMATOCRIT 32.6 % (36.0-47.0); HEMOGLOBIN 9.8 g/dl (12.0-15.5)
--- NOTE | 2019-02-17 15:25 | DS.PDOC ---
Discharge Summary General Date of Admission Feb 16, 2019 at 15:49 Date of Discharge 02/17/2019 Discharge Summary PROCEDURES PERFORMED DURING STAY: [None]. ADMITTING DIAGNOSES / DISCHARGE DIAGNOSES: Symptomatic anemia requiring 4 units PRBC transfusions Reported migraine headaches, resolved Iron deficiency anemia, non-compliant with medications Hx of Calixto's palsy Hx of Kidney stones Hx of Herpes DVT prophylaxis COMPLICATIONS/CHIEF COMPLAINT: Shortness of breath / Headache HISTORY OF PRESENT ILLNESS / HOSPITAL COURSE: Patient is a 64-year-old female with a past medical history of migrai ne headaches and iron deficiency anemia as well as a history of gastric bypass surgery who has presented to the emergency room with complaints of persistent headache and dizziness. Patient was found to have a hemoglobin of 6.8 in the emergency room and was admitted to the hospital service for further evaluation and treatment. Patient has history of iron deficiency anemia and has been noncompliant with her medications. . She denied any blood loss, any blood in her stool or urine. Reports that her menses have not been irregular. Patient was transfused 2 units of PRBC and her hemoglobin has improved appropriately given that she was given 1 L of fluid in the emergency room. Despite this, we have transfuser and additional 2 units to help optimize her. Patient reports that her symptoms have completely resolved upon 40 units of PRBC transfusion total. She reported that her headache was resolved with Fioricet that was given on 02/16/2019. Patient has been advised to follow-up with her primary care provider within the next 7 days and remained compliant with treatment plan and medications. She's been instructed to return to the emergency room if she experiences any problems. DISCHARGE MEDICATIONS: Please see below. ALLERGIES: Please see below. PHYSICAL EXAMINATION ON DISCHARGE: Vitals (See below) General: Lying in bed, no acute distress, comfortable, AAOx3 HEENT: NC, AT CVS: RRR, +S1S2 Lungs: Fair air entry b/l, -w/r/r Abdomen: Soft, ND, NT Extremities: - Edema, - Calf tenderness LABORATORY DATA: Please see below. ACTIVITY: [As tolerated]. DISCHARGE PLAN: Follow up with Barbie Aggarwal within 7 days Remain compliant with treatment plan and medications Return to the ER if you experience any problems DISPOSITION: Home DISCHARGE CONDITION: [Stable]. TIME SPENT ON DISCHARGE: 35 minutes Vital Signs/I&Os Vital Signs Date Time Temp Pulse Resp B/P (MAP) Pulse Ox O2 Delivery O2 Flow Rate FiO2 02/17/19 13:28 99.0 62 18 123/57 99 Room Air I&O- Last 24 Hours up to 6 AM 02/17/19 06:00 Intake Total 2258 ml Output Total 200 ml Balance 2058 ml Laboratory Data Labs 24H Laboratory Tests 2 02/17/19 06:17: Nucleated Red Blood Cells % (auto) 0.0, Anion Gap 5L, Glomerular Filtration Rate > 60.0, Calcium Level 7.7L CBC/BMP Laboratory Tests 02/16/19 22:08 02/17/19 06:17 02/17/19 14:59 Discharge Medications Scheduled Calcium Carbonate/Vitamin D3 (Calcium 500-Vit D3 200 Tablet) 1 Each Tablet, 1 TAB PO DAILY, (Reported) Cyanocobalamin (Vitamin B-12) (Vitamin B12) 2,500 Mcg Tablet, 2,500 MCG PO DAILY, (Reported) Ergocalciferol (Vitamin D2) (Drisdol) 50,000 Unit Capsule, 50,000 UNITS PO Q7D, (Reported) Ferrous Sulfate (Iron) 325 Mg Tablet, 325 MG PO TID Pedi Multivit No.25/Folic Acid (Child's Chewable Multivit Tab) 1 Chw Chw, 2 CHW PO DAILY, (Reported) Scheduled PRN Valacyclovir HCl (Valtrex) 500 Mg Tab, 2 TAB PO DAILYPRN PRN for HERPES, (Reported) Allergies Coded Allergies: Pertussis Vaccines (Verified Allergy, Intermediate, seizures, 07/31/18) latex (Verified Allergy, Intermediate, swelling, 07/31/18) KANG HODGSON MD Feb 17, 2019 15:25
== END 2019-02-17 15:40 | disposition home or self-care (01) | DRG 663 ==
LOC: M ED 13:41 → M ED INP 15:49 → M PED 17:05
PROVIDERS: ADMIT Internal Medicine; ATTEND Internal Medicine
PROC: 30233N1 Transfusion of Nonautologous Red Blood Cells into Peripheral Vein, Percutaneous Approach (ICD-10-PCS; principal; 2019-02-16)
DX: D50.9 Iron deficiency anemia, unspecified (principal); G43.909 Migraine, unspecified, not intractable, without status migrainosus; Z91.14 Patient's other noncompliance with medication regimen; Z87.442 Personal history of urinary calculi; Z79.899 Other long term (current) drug therapy; Z91.040 Latex allergy status; Z88.7 Allergy status to serum and vaccine; E53.8 Deficiency of other specified B group vitamins

== ENCOUNTER 2019-02-22 16:21 | Emergency (ER) | payer OTHER ==
[~2019-02-22] VITALS: Ht 167.6 cm; Wt 86.4 kg
[2019-02-22 16:21] VITALS: BP 127/61
[~2019-02-22 16:21] MED LIST changes: +IRON65TA2 PO; +PATIENT COMMENTS
[2019-02-22] MEDS ORDERED: DICYCLOMINE 10 MG CAP PO ONE (17:15)
[2019-02-22] MEDS ORDERED: NS 1,000 ML IV ONE (17:15)
[2019-02-22] MEDS ORDERED: ONDANSETRON 4MG/2ML VIAL (J2405) IV ONE (17:15)
[2019-02-22 17:43] LABS: BASO % 0.5 % (0.0-1.0); EOS # 0.1 10^3/uL (0.0-0.5); EOS % 1.4 % (0.0-3.0); HEMATOCRIT 36.9 % (36.0-47.0); HEMOGLOBIN 10.6 g/dl (12.0-15.5); LYMPH # 1.7 10^3/uL (1.5-5.0); LYMPH % 25.9 % (24.0-44.0); MEAN CORPUSCULAR HEMOGLOBIN 22.4 pg (27.0-33.0); MEAN CORPUSCULAR HGB CONC 28.7 g/dl (32.0-36.5); MONO # 0.6 10^3/uL (0.0-0.8); MONO % 8.5 % (0.0-5.0); NEUTROPHILS # 4.1 10^3/uL (1.5-8.5); NEUTROPHILS % 63.4 % (36.0-66.0); PLATELET COUNT, AUTOMATED 207 10^3/uL (150-450); RED BLOOD COUNT 4.73 10^6/uL (4.00-5.40); WHITE BLOOD COUNT 6.5 10^3/uL (4.0-10.0)
[2019-02-22 18:06] LABS: ALBUMIN 3.8 GM/DL (3.2-5.2); ALT/SGPT 24 U/L (12-78); BILIRUBIN,DIRECT < 0.1 MG/DL (0.0-0.2); BILIRUBIN,TOTAL 0.2 MG/DL (0.2-1.0); LIPASE 165 U/L (73-393); TOTAL PROTEIN 7.3 GM/DL (6.4-8.2)
--- NOTE | 2019-02-22 19:01 | REP ---
Clinical: Epigastric and abdominal pain. Technique: Upright view of the chest with supine and upright views of the abdomen and pelvis. Findings: Frontal upright view of the chest demonstrates no acute cardiopulmonary process or free air below the diaphragm to suspect pneumoperitoneum. Supine and upright views of the abdomen and pelvis demonstrate nonspecific bowel gas pattern without obstruction or perforation. No organomegaly. Evidence of prior cholecystectomy. No abnormal calcifications. Skeletal structures normal for age. Impression: Nonspecific bowel gas pattern. Electronically Signed by Clyde Felix MD 02/22/2019 06:53 P
[2019-02-22] MEDS ORDERED: ONDA4TAB6 PO (19:06)
[2019-02-22] MEDS ORDERED: DICY10CA13 PO (19:06)
== END 2019-02-22 19:16 | disposition home or self-care (01) ==
LOC: M ED 16:21
DX: R10.84 Generalized abdominal pain (principal); Z86.2 Personal history of diseases of the blood and blood-forming organs and certain disorders involving the immune mechanism; R11.2 Nausea with vomiting, unspecified; Z98.84 Bariatric surgery status; Z91.040 Latex allergy status; Z88.7 Allergy status to serum and vaccine
CPT/HCPCS: 74021; 80047; 80076; 81001; 83690; 84702; 85025; 96361; 96374; 99284; J2405

== ENCOUNTER → 2019-02-27 | Outpatient (REF) | payer OTHER ==
[~2019-02-27] MED LIST changes: +DICY10CA13 PO; +ONDA4TAB6 PO
[2019-02-27 13:55] LABS: HEMATOCRIT 41.9 % (36.0-47.0); HEMOGLOBIN 11.5 g/dl (12.0-15.5); MEAN CORPUSCULAR HGB CONC 27.4 g/dl (32.0-36.5); MEAN CORPUSCULAR VOLUME 80.1 fl (80.0-96.0); PLATELET COUNT, AUTOMATED 150 10^3/uL (150-450); RED BLOOD COUNT 5.23 10^6/uL (4.00-5.40); WHITE BLOOD COUNT 5.8 10^3/uL (4.0-10.0)
[2019-02-27 14:19] LABS: PERCENT SATURATION 23.7 % (13.2-45.0)
[2019-02-27 14:27] LABS: TOTAL 25(OH) VITAMIN D 13.9 NG/ML (30.0-100.0)
== END ==
LOC: M SFHCPLAZ 11:37
PROVIDERS: ATTEND Nurse Practitioner Adult Health
DX: D50.9 Iron deficiency anemia, unspecified (principal); E55.9 Vitamin D deficiency, unspecified; E53.8 Deficiency of other specified B group vitamins

== ENCOUNTER 2019-04-11 08:17 | Outpatient (CLI) | payer OTHER ==
[~2019-04-11] VITALS: Ht 167.6 cm; Wt 86.4 kg
[2019-04-11 08:20] VITALS: BP 109/58
[2019-04-11] MEDS ORDERED: IRON SUCROSE 500 MG in NS 250 ML OVER 4 HRS IV ONE (08:30)
[2019-04-11 09:00] VITALS: BP 104/58
[2019-04-11 10:00] VITALS: BP 113/61
[2019-04-11 11:01] VITALS: BP 107/60
[2019-04-11 11:55] VITALS: BP 108/56
== END 2019-04-11 12:15 | disposition home or self-care (01) ==
LOC: M INFU 08:17
PROVIDERS: ATTEND Nurse Practitioner Adult Health
DX: D50.9 Iron deficiency anemia, unspecified (principal); Z88.7 Allergy status to serum and vaccine; Z91.040 Latex allergy status
CPT/HCPCS: 96365; 96366; J1756

== ENCOUNTER 2019-06-14 17:26 | Emergency (ER) | payer OTHER ==
[~2019-06-14] VITALS: Ht 167.6 cm; Wt 86.4 kg
[2019-06-14] MEDS ORDERED: diphenhydrAMINE INJ 50MG/ML VIAL (J1200) IV ONE (18:30)
[2019-06-14] MEDS ORDERED: NS 1,000 ML IV ONE (18:30)
[2019-06-14] MEDS ORDERED: MECLIZINE 25 MG TABLET PO ONE (18:30)
[2019-06-14] MEDS ORDERED: METOCLOPRAMIDE INJ 10MG/2ML VIAL (J2765) IV ONE (18:30)
[2019-06-14] MEDS ORDERED: ACETAMINOPHEN 325 MG TAB PO ONE (18:30)
[2019-06-14 19:31] LABS: BASO % 0.7 % (0.0-1.0); EOS # 0.1 10^3/uL (0.0-0.5); EOS % 1.3 % (0.0-3.0); HEMATOCRIT 32.4 % (36.0-47.0); LYMPH # 2.3 10^3/uL (1.5-5.0); LYMPH % 37.6 % (24.0-44.0); MEAN CORPUSCULAR HEMOGLOBIN 26.2 pg (27.0-33.0); MEAN CORPUSCULAR HGB CONC 30.9 g/dl (32.0-36.5); MEAN CORPUSCULAR VOLUME 84.8 fl (80.0-96.0); MONO # 0.5 10^3/uL (0.0-0.8); MONO % 8.1 % (0.0-5.0); NEUTROPHILS # 3.2 10^3/uL (1.5-8.5); NEUTROPHILS % 52.1 % (36.0-66.0); PLATELET COUNT, AUTOMATED 168 10^3/uL (150-450); RED BLOOD COUNT 3.82 10^6/uL (4.00-5.40); WHITE BLOOD COUNT 6.2 10^3/uL (4.0-10.0)
[2019-06-14 20:05] LABS: BLOOD UREA NITROGEN 13 MG/DL (7-18); CALCIUM LEVEL 8.2 MG/DL (8.5-10.1); CARBON DIOXIDE LEVEL 26 MEQ/L (21-32); CHLORIDE LEVEL 108 MEQ/L (98-107); CREATININE FOR GFR 0.52 MG/DL (0.55-1.30); FERRITIN 3 NG/ML (8-252); GLOMERULAR FILTRATION RATE > 60.0 (>60); GLUCOSE, FASTING 85 MG/DL (70-100); IRON (FE) 16 UG/DL (50-170); MAGNESIUM LEVEL 2.3 MG/DL (1.8-2.4); PERCENT SATURATION 3.6 % (13.2-45.0); POTASSIUM SERUM 3.8 MEQ/L (3.5-5.1); SODIUM LEVEL 139 MEQ/L (136-145); TOTAL IRON BINDING CAPACITY 440 UG/DL (250-450)
[2019-06-14 21:26] LABS: APPEARANCE, URINE HAZY (CLEAR); BACTERIA, URINE AUTO 1+ (NEGATIVE); BILIRUBIN, URINE AUTO NEGATIVE (NEGATIVE); BLOOD, URINE BLOOD NEGATIVE (NEGATIVE); COLOR, URINE YELLOW (YELLOW); GLUCOSE, URINE (UA) AUTO NEGATIVE (NEGATIVE); KETONE, URINE AUTO NEGATIVE (NEGATIVE); LEUKOCYTE ESTERASE, URINE AUTO 1+ (NEGATIVE); MUCUS, URINE LARGE (NEGATIVE); NITRITE, URINE AUTO NEGATIVE (NEGATIVE); PROTEIN, URINE AUTO NEGATIVE (NEGATIVE); RBC, URINE AUTO 2 /HPF (0-3); SPECIFIC GRAVITY URINE AUTO 1.026 (1.002-1.035); SQUAMOUS EPITHELIAL CELL UR AU 3 /HPF (0-6); UROBILINOGEN, URINE AUTO 0.2 mg/dL (0.0-2.0); WBC, URINE AUTO 5 /HPF (0-3)
[2019-06-14] MEDS ORDERED: MECL1TAB31 PO (21:35)
[2019-06-14 22:08] VITALS: BP 131/80
== END 2019-06-14 22:10 | disposition home or self-care (01) ==
LOC: M ED 17:26
DX: D50.9 Iron deficiency anemia, unspecified (principal); R42 Dizziness and giddiness; R53.1 Weakness; G43.909 Migraine, unspecified, not intractable, without status migrainosus; Z98.84 Bariatric surgery status; Z91.040 Latex allergy status; Z88.7 Allergy status to serum and vaccine
CPT/HCPCS: 80048; 81001; 82728; 83550; 83735; 85025; 96361; 96374; 96375; 99284; J1200; J2765

== ENCOUNTER 2019-06-16 18:13 | Emergency (ER) | payer OTHER ==
[~2019-06-16] VITALS: Ht 165.1 cm; Wt 94.8 kg
[~2019-06-16 18:13] MED LIST changes: +MECL1TAB31 PO
[2019-06-16 18:14] VITALS: BP 143/64
--- NOTE | 2019-06-17 08:08 | REP ---
Right hand four views : There is no fracture or dislocation. Mineralization and joint spaces are normal. There are no calcifications or foreign bodies. Impression: Negative right hand . Electronically Signed by Mansoor Aldana MD 06/17/2019 07:59 A
== END 2019-06-16 19:27 | disposition home or self-care (01) ==
LOC: M ED 18:13
DX: S63.614A Unspecified sprain of right ring finger, initial encounter (principal); S63.612A Unspecified sprain of right middle finger, initial encounter; W22.09XA Striking against other stationary object, initial encounter; Y92.9 Unspecified place or not applicable; D64.9 Anemia, unspecified; Z88.7 Allergy status to serum and vaccine; Z91.040 Latex allergy status; Z79.899 Other long term (current) drug therapy

== ENCOUNTER 2019-08-21 12:04 | Emergency (ER) | payer OTHER ==
[~2019-08-21] VITALS: Ht 167.6 cm; Wt 94.4 kg
[2019-08-21] MEDS ORDERED: DICY10CA13 PO (12:14)
[2019-08-21] MEDS ORDERED: VALT500T PO (12:14)
[2019-08-21] MEDS ORDERED: KETOROLAC 30 MG/ML 1ML VIAL IV ONE (12:45)
[2019-08-21] MEDS ORDERED: ONDANSETRON 4MG/2ML VIAL IV ONE (12:45)
[2019-08-21 12:56] LABS: BASO % 0.6 % (0.0-1.0); EOS # 0.1 10^3/uL (0.0-0.5); EOS % 1.5 % (0.0-3.0); HEMATOCRIT 33.1 % (36.0-47.0); HEMOGLOBIN 9.5 g/dl (12.0-15.5); LYMPH # 1.5 10^3/uL (1.5-5.0); MEAN CORPUSCULAR HEMOGLOBIN 22.7 pg (27.0-33.0); MEAN CORPUSCULAR HGB CONC 28.7 g/dl (32.0-36.5); MONO # 0.5 10^3/uL (0.0-0.8); NEUTROPHILS # 2.6 10^3/uL (1.5-8.5); NEUTROPHILS % 55.7 % (36.0-66.0); PLATELET COUNT, AUTOMATED 287 10^3/uL (150-450); RED BLOOD COUNT 4.19 10^6/uL (4.00-5.40); WHITE BLOOD COUNT 4.6 10^3/uL (4.0-10.0)
[2019-08-21 13:09] LABS: INR 0.99; PROTHROMBIN TIME 12.8 SECONDS (11.8-14.0)
[2019-08-21 13:10] LABS: PARTIAL THROMBOPLASTIN TIME 32.3 SECONDS (25.0-38.4)
[2019-08-21 13:18] LABS: BLOOD UREA NITROGEN 10 MG/DL (7-18); CALCIUM LEVEL 8.8 MG/DL (8.5-10.1); CARBON DIOXIDE LEVEL 30 MEQ/L (21-32); CHLORIDE LEVEL 106 MEQ/L (98-107); CREATININE FOR GFR 0.71 MG/DL (0.55-1.30); GLOMERULAR FILTRATION RATE > 60.0 (>60); GLUCOSE, FASTING 72 MG/DL (70-100); POTASSIUM SERUM 4.1 MEQ/L (3.5-5.1); SODIUM LEVEL 139 MEQ/L (136-145)
[2019-08-21 13:22] LABS: ALT/SGPT 21 U/L (12-78); BILIRUBIN,DIRECT < 0.1 MG/DL (0.0-0.2); BILIRUBIN,TOTAL 0.3 MG/DL (0.2-1.0); FERRITIN 3 NG/ML (8-252); IRON (FE) 21 UG/DL (50-170); MAGNESIUM LEVEL 2.4 MG/DL (1.8-2.4); PERCENT SATURATION 4.1 % (13.2-45.0); TOTAL IRON BINDING CAPACITY 510 UG/DL (250-450); TOTAL PROTEIN 7.9 GM/DL (6.4-8.2)
[2019-08-21 14:28] VITALS: BP 117/57
== END 2019-08-21 14:29 | disposition home or self-care (01) ==
LOC: M ED 12:04
DX: G43.909 Migraine, unspecified, not intractable, without status migrainosus (principal); D50.9 Iron deficiency anemia, unspecified; R42 Dizziness and giddiness; Z88.7 Allergy status to serum and vaccine; Z91.040 Latex allergy status; Z98.84 Bariatric surgery status
CPT/HCPCS: 80048; 80076; 82728; 83550; 83735; 85025; 85610; 85730; 96374; 96375; 99284; J1885; J2405

== ENCOUNTER 2021-09-29 18:59 | Emergency (ER) | payer OTHER ==
[~2021-09-29] VITALS: Ht 165.1 cm; Wt 84.7 kg
[2021-09-29 19:00] VITALS: BP 108/54
[2021-09-29 22:41] LABS: MEAN CORPUSCULAR HEMOGLOBIN 14.4 pg (27.0-33.0); MEAN CORPUSCULAR HGB CONC 23.6 g/dl (32.0-36.5); MEAN CORPUSCULAR VOLUME 61.2 fl (80.0-96.0); PLATELET COUNT, AUTOMATED 394 10^3/uL (150-450); RED BLOOD COUNT 3.12 10^6/uL (4.00-5.40); WHITE BLOOD COUNT 6.4 10^3/uL (4.0-10.0)
[2021-09-29 22:53] LABS: HEMATOCRIT 19.1 % (36.0-47.0); HEMOGLOBIN 4.5 g/dl (12.0-15.5)
[2021-10-01] MEDS ORDERED: C-251TAB PO (11:01)
[2021-10-01] MEDS ORDERED: FERR325T3 PO (11:01)
== END 2021-09-30 02:57 | disposition left against medical advice (07) ==
LOC: M ED 18:59
DX: Z53.21 Procedure and treatment not carried out due to patient leaving prior to being seen by health care provider (principal)

== ENCOUNTER → 2021-09-29 | Outpatient (CLI) | payer OTHER ==
[~2021-09-29] MED LIST changes: -CALC500T44 PO; +OYST500T92 PO
[2021-09-29 17:38] LABS: MEAN CORPUSCULAR HEMOGLOBIN 14.2 pg (27.0-33.0); MEAN CORPUSCULAR HGB CONC 23.1 g/dl (32.0-36.5); MEAN CORPUSCULAR VOLUME 61.7 fl (80.0-96.0); PLATELET COUNT, AUTOMATED 459 10^3/uL (150-450); RED BLOOD COUNT 3.16 10^6/uL (4.00-5.40); WHITE BLOOD COUNT 4.5 10^3/uL (4.0-10.0)
[2021-09-29 17:53] LABS: INR 1.07; PROTHROMBIN TIME 14.3 SECONDS (12.7-14.5)
[2021-09-29 17:54] LABS: HEMATOCRIT 19.5 % (36.0-47.0); HEMOGLOBIN 4.5 g/dl (12.0-15.5); PARTIAL THROMBOPLASTIN TIME 31.4 SECONDS (25.9-37.0)
[2021-09-29 18:07] LABS: ALBUMIN 3.6 GM/DL (3.2-5.2); ALT/SGPT 15 U/L (12-78); BILIRUBIN,TOTAL 0.3 MG/DL (0.2-1.0); BLOOD UREA NITROGEN 13 MG/DL (7-18); CALCIUM LEVEL 8.9 MG/DL (8.5-10.1); CARBON DIOXIDE LEVEL 29 MEQ/L (21-32); CHLORIDE LEVEL 107 MEQ/L (98-107); CREATININE FOR GFR 0.66 MG/DL (0.55-1.30); FERRITIN < 3 NG/ML (8-252); GLOMERULAR FILTRATION RATE > 60.0 (>60); GLUCOSE, FASTING 88 MG/DL (70-100); IRON (FE) 11 UG/DL (50-170); MAGNESIUM LEVEL 2.3 MG/DL (1.8-2.4); PERCENT SATURATION 1.9 % (13.2-45.0); PHOSPHORUS LEVEL 4.7 MG/DL (2.5-4.9); POTASSIUM SERUM 4.5 MEQ/L (3.5-5.1); SODIUM LEVEL 141 MEQ/L (136-145); TOTAL IRON BINDING CAPACITY 569 UG/DL (250-450); TOTAL PROTEIN 7.1 GM/DL (6.4-8.2)
[2021-09-29 18:28] LABS: TOTAL 25(OH) VITAMIN D 13.6 NG/ML (30.0-100.0)
[2021-09-29 18:29] LABS: FOLATE 5.5 NG/ML; VITAMIN B12 LEVEL 492 PG/ML
== END ==
LOC: M PLALAB 14:20
PROVIDERS: ATTEND Family Medicine
DX: K90.9 Intestinal malabsorption, unspecified (principal); E55.9 Vitamin D deficiency, unspecified; D50.9 Iron deficiency anemia, unspecified; R23.8 Other skin changes; N92.0 Excessive and frequent menstruation with regular cycle

== ENCOUNTER 2021-09-30 09:15 | Inpatient (IN) | payer OTHER ==
[~2021-09-30] VITALS: Ht 165.1 cm; Wt 84.2 kg
[2021-09-30] VITALS (14 sets, daily range): BP systolic 89–114; BP diastolic 52–61
[2021-09-30 10:30] LABS: MEAN CORPUSCULAR HEMOGLOBIN 14.3 pg (27.0-33.0); MEAN CORPUSCULAR HGB CONC 23.7 g/dl (32.0-36.5); MEAN CORPUSCULAR VOLUME 60.3 fl (80.0-96.0); PLATELET COUNT, AUTOMATED 401 10^3/uL (150-450); RED BLOOD COUNT 3.43 10^6/uL (4.00-5.40); WHITE BLOOD COUNT 4.2 10^3/uL (4.0-10.0)
[2021-09-30 10:31] LABS: HEMATOCRIT 20.7 % (36.0-47.0)
[2021-09-30 10:33] LABS: HEMOGLOBIN 4.9 g/dl (12.0-15.5)
[2021-09-30] MEDS ORDERED: ISOVUE-370 76% 100ML VIAL As Ordered ONE (10:41)
[2021-09-30 10:56] LABS: ALBUMIN 3.7 GM/DL (3.2-5.2); ALT/SGPT 13 U/L (12-78); BILIRUBIN,TOTAL 0.2 MG/DL (0.2-1.0); BLOOD UREA NITROGEN 13 MG/DL (7-18); CALCIUM LEVEL 8.4 MG/DL (8.5-10.1); CARBON DIOXIDE LEVEL 29 MEQ/L (21-32); CHLORIDE LEVEL 107 MEQ/L (98-107); CREATININE FOR GFR 0.68 MG/DL (0.55-1.30); GLOMERULAR FILTRATION RATE > 60.0 (>60); GLUCOSE, FASTING 112 MG/DL (70-100); POTASSIUM SERUM 4.1 MEQ/L (3.5-5.1); SODIUM LEVEL 140 MEQ/L (136-145); TOTAL PROTEIN 7.1 GM/DL (6.4-8.2)
[2021-09-30 12:27] LABS: RSV AMPLIFICATION NEGATIVE (NEGATIVE)
[2021-09-30] MEDS ORDERED: HOME MED LIST COMPLETE! XX SCH (16:15)
[2021-09-30] MEDS ORDERED: IRON SUCROSE 100MG 5ML VIAL (J1756 PER 1MG) IV ONE (16:55)
[2021-09-30] MEDS ORDERED: ACETAMINOPHEN TAB 650MG DOSE (2X325MG) PO PRN (17:05)
[2021-09-30] MEDS ORDERED: MOM 30ML SUSPENSION UDC PO PRN (17:05)
[2021-09-30] MEDS ORDERED: MAALOX 30 ML SUSP *UDC PO PRN (17:05)
[2021-09-30] MEDS ORDERED: IRON SUCROSE 300 MG in NS 250 ML OVER 90 MIN. IV ONE (19:00)
[2021-09-30 19:37] LABS: HEMATOCRIT 26.7 % (36.0-47.0)
[2021-09-30 19:39] LABS: HEMOGLOBIN 7.5 g/dl (12.0-15.5)
[2021-10-01 06:00] VITALS: BP 106/60
[2021-10-01 06:29] LABS: BASO % 0.5 % (0.0-1.0); EOS # 0.1 10^3/uL (0.0-0.5); EOS % 1.1 % (0.0-3.0); HEMATOCRIT 26.5 % (36.0-47.0); HEMOGLOBIN 7.4 g/dl (12.0-15.5); LYMPH # 1.5 10^3/uL (1.5-5.0); LYMPH % 24.1 % (24.0-44.0); MEAN CORPUSCULAR HEMOGLOBIN 18.8 pg (27.0-33.0); MEAN CORPUSCULAR HGB CONC 27.9 g/dl (32.0-36.5); MEAN CORPUSCULAR VOLUME 67.3 fl (80.0-96.0); MONO # 0.7 10^3/uL (0.0-0.8); MONO % 10.3 % (2.0-8.0); NEUTROPHILS % 63.7 % (36.0-66.0); RED BLOOD COUNT 3.94 10^6/uL (4.00-5.40); WHITE BLOOD COUNT 6.3 10^3/uL (4.0-10.0)
[2021-10-01 06:30] LABS: PLATELET COUNT, AUTOMATED 280 10^3/uL (150-450)
[2021-10-01 06:45] LABS: BLOOD UREA NITROGEN 11 MG/DL (7-18); CARBON DIOXIDE LEVEL 28 MEQ/L (21-32); CHLORIDE LEVEL 106 MEQ/L (98-107); CREATININE FOR GFR 0.44 MG/DL (0.55-1.30); GLOMERULAR FILTRATION RATE > 60.0 (>60); GLUCOSE, FASTING 86 MG/DL (70-100); MAGNESIUM LEVEL 2.1 MG/DL (1.8-2.4); POTASSIUM SERUM 3.8 MEQ/L (3.5-5.1); SODIUM LEVEL 139 MEQ/L (136-145)
[2021-10-01 10:08] VITALS: BP 99/57
[2021-10-01 10:35] VITALS: BP 104/61
[2021-10-01] MEDS ORDERED: FERR325T3 PO (11:01)
[2021-10-01] MEDS ORDERED: C-251TAB PO (11:01)
[2021-10-01 11:27] VITALS: BP 107/60
[2021-10-01 12:04] VITALS: BP 105/63
[2021-10-01 13:01] LABS: HEMATOCRIT 31.1 % (36.0-47.0); HEMOGLOBIN 8.8 g/dl (12.0-15.5)
[2021-10-01 13:13] LABS: INR 0.99; PROTHROMBIN TIME 13.5 SECONDS (12.7-14.5)
== END 2021-10-01 13:43 | disposition home or self-care (01) | DRG 663 ==
LOC: M ED 09:15 → M ED INP 17:05 → ENRESERV 18:50 → M MSPAV 20:50
PROVIDERS: ADMIT Family Medicine; ATTEND Family Medicine
PROC: 30233N1 Transfusion of Nonautologous Red Blood Cells into Peripheral Vein, Percutaneous Approach (ICD-10-PCS; principal; 2021-09-30)
DX: D50.9 Iron deficiency anemia, unspecified (principal); N92.0 Excessive and frequent menstruation with regular cycle; Z91.040 Latex allergy status; Z88.7 Allergy status to serum and vaccine

== ENCOUNTER → 2022-01-14 | Outpatient (CLI) | payer OTHER ==
[~2022-01-14] MED LIST changes: +C-251TAB PO; +FERR325T3 PO
[2022-01-14 17:30] LABS: BASO % 0.7 % (0.0-1.0); EOS % 0.2 % (0.0-3.0); HEMATOCRIT 30.3 % (36.0-47.0); HEMOGLOBIN 8.4 g/dl (12.0-15.5); LYMPH # 1.4 10^3/uL (1.5-5.0); LYMPH % 26.5 % (24.0-44.0); MEAN CORPUSCULAR HEMOGLOBIN 20.2 pg (27.0-33.0); MEAN CORPUSCULAR HGB CONC 27.7 g/dl (32.0-36.5); MONO # 0.5 10^3/uL (0.0-0.8); MONO % 9.1 % (2.0-8.0); NEUTROPHILS # 3.4 10^3/uL (1.5-8.5); NEUTROPHILS % 63.1 % (36.0-66.0); PLATELET COUNT, AUTOMATED 309 10^3/uL (150-450); RED BLOOD COUNT 4.15 10^6/uL (4.00-5.40); WHITE BLOOD COUNT 5.4 10^3/uL (4.0-10.0)
[2022-01-14 17:32] LABS: ALBUMIN 3.8 GM/DL (3.2-5.2); ALT/SGPT 18 U/L (12-78); BILIRUBIN,TOTAL 0.3 MG/DL (0.2-1.0); BLOOD UREA NITROGEN 8 MG/DL (7-18); CALCIUM LEVEL 8.7 MG/DL (8.5-10.1); CARBON DIOXIDE LEVEL 28 MEQ/L (21-32); CHLORIDE LEVEL 105 MEQ/L (98-107); FERRITIN < 3 NG/ML (8-252); GLOMERULAR FILTRATION RATE > 60.0 (>60); GLUCOSE, FASTING 87 MG/DL (70-100); IRON (FE) 15 UG/DL (50-170); SODIUM LEVEL 140 MEQ/L (136-145); TOTAL IRON BINDING CAPACITY 507 UG/DL (250-450); TOTAL PROTEIN 7.1 GM/DL (6.4-8.2)
[2022-01-14 17:36] LABS: INR 0.99; PROTHROMBIN TIME 13.5 SECONDS (12.7-14.5)
== END ==
LOC: M PLALAB 15:31
PROVIDERS: ATTEND Physician Assistant
DX: R53.83 Other fatigue (principal); D50.9 Iron deficiency anemia, unspecified

== ENCOUNTER 2022-01-20 08:18 | Outpatient (CLI) | payer OTHER ==
[~2022-01-20] VITALS: Ht 165.1 cm; Wt 81.6 kg
[~2022-01-20 08:18] MED LIST changes: +ALBUTEROL SULFATE 2.5 MG/0.5 ML INH NEB SOLN INH PRN; +EPINEPHrine INJ 1 MG/ML 1ML AMP IM PRN; +FERRIC CARBOXYMALTOSE INJ 750 MG in NS 250 ML (>50kg) IV ONE; +NS 1,000 ML IV SCH; +diphenhydrAMINE 50MG/ML VIAL (J1200) IV PRN; +methylPREDNISolone 125MG 2ML VIAL IV PRN
[2022-01-20 08:25] VITALS: BP 129/68
[2022-01-20 09:51] VITALS: BP 127/62
== END 2022-01-20 09:50 | disposition home or self-care (01) ==
LOC: M INFU 08:18
PROVIDERS: ATTEND Physician Assistant
DX: D50.9 Iron deficiency anemia, unspecified (principal); Z88.7 Allergy status to serum and vaccine; Z91.040 Latex allergy status
CPT/HCPCS: 96365; J1439

== ENCOUNTER 2022-07-04 10:17 | Emergency (ER) | payer OTHER ==
[~2022-07-04] VITALS: Ht 167.6 cm; Wt 73.9 kg
[~2022-07-04 10:17] MED LIST changes: -ALBUTEROL SULFATE 2.5 MG/0.5 ML INH NEB SOLN INH PRN; -EPINEPHrine INJ 1 MG/ML 1ML AMP IM PRN; -FERRIC CARBOXYMALTOSE INJ 750 MG in NS 250 ML (>50kg) IV ONE; -NS 1,000 ML IV SCH; -diphenhydrAMINE 50MG/ML VIAL (J1200) IV PRN; -methylPREDNISolone 125MG 2ML VIAL IV PRN
[2022-07-04 10:18] VITALS: BP 114/58
[2022-07-04] MEDS ORDERED: VALA500T5 (10:37)
[2022-07-04] MEDS ORDERED: SODIUM CHLORIDE 0.9% 1000ML IV STA (11:01)
[2022-07-04] MEDS ORDERED: METOCLOPRAMIDE INJ 10MG/2ML VIAL IV ONE (11:05)
[2022-07-04 11:42] LABS: BASO % 0.8 % (0.0-1.0); EOS % 0.5 % (0.0-3.0); HEMATOCRIT 30.8 % (36.0-47.0); HEMOGLOBIN 8.4 g/dl (12.0-15.5); LYMPH # 1.1 10^3/uL (1.5-5.0); LYMPH % 28.5 % (24.0-44.0); MEAN CORPUSCULAR HEMOGLOBIN 19.5 pg (27.0-33.0); MEAN CORPUSCULAR HGB CONC 27.3 g/dl (32.0-36.5); MEAN CORPUSCULAR VOLUME 71.6 fl (80.0-96.0); MONO # 0.3 10^3/uL (0.0-0.8); MONO % 8.3 % (2.0-8.0); NEUTROPHILS # 2.3 10^3/uL (1.5-8.5); NEUTROPHILS % 61.9 % (36.0-66.0); PLATELET COUNT, AUTOMATED 185 10^3/uL (150-450); WHITE BLOOD COUNT 3.7 10^3/uL (4.0-10.0)
[2022-07-04 12:05] LABS: INR 1.02; PROTHROMBIN TIME 13.6 SECONDS (12.5-14.5)
[2022-07-04 12:08] LABS: ALBUMIN 3.9 G/DL (3.2-5.2); ALKALINE PHOSPHATASE 59 U/L (46-116); ALT/SGPT 17 U/L (7.0-40); AST/SGOT 9 U/L (<34); BILIRUBIN,TOTAL 0.5 MG/DL (0.3-1.2); BLOOD UREA NITROGEN 12 MG/DL (9-23); CALCIUM LEVEL 8.4 MG/DL (8.5-10.1); CARBON DIOXIDE LEVEL 27 MMOL/L (20-31); CHLORIDE LEVEL 105 MMOL/L (98-107); CREATININE FOR GFR 0.57 MG/DL (0.55-1.30); GLOMERULAR FILTRATION RATE > 60.0 (>60); GLUCOSE, FASTING 106 MG/DL (60-100); POTASSIUM SERUM 3.8 MMOL/L (3.5-5.1); SODIUM LEVEL 138 MMOL/L (136-145)
[2022-07-04 12:19] LABS: RSV AMPLIFICATION NEGATIVE (NEGATIVE)
[2022-07-04 12:30] LABS: IRON (FE) 10 UG/DL (50-170); PERCENT SATURATION 2.1 % (13.2-45.0); TOTAL IRON BINDING CAPACITY 466 UG/DL (250-425)
[2022-07-04 12:32] LABS: FERRITIN 0.89999 NG/ML (7.3-270.7)
== END 2022-07-04 13:00 | disposition home or self-care (01) ==
LOC: M ED 10:17
DX: R42 Dizziness and giddiness (principal); D50.9 Iron deficiency anemia, unspecified; R00.1 Bradycardia, unspecified; Z88.7 Allergy status to serum and vaccine; Z91.040 Latex allergy status; Z79.52 Long term (current) use of systemic steroids; Z79.899 Other long term (current) drug therapy
CPT/HCPCS: 80053; 82728; 83550; 85025; 85610; 86850; 86900; 86901; 87631; 93005; 96374; 96375; 99284; J2765

== ENCOUNTER → 2022-08-08 | Outpatient (REF) | payer OTHER ==
[~2022-08-08] MED LIST changes: +VALA500T5
== END ==
LOC: M SFHCWAGY 17:47
PROVIDERS: ATTEND Nurse Practitioner Family
DX: R23.9 Unspecified skin changes (principal); N62 Hypertrophy of breast

== ENCOUNTER → 2022-08-11 | Outpatient (CLI) | payer OTHER | LOC: M WHC 08:09 | PROVIDERS: ATTEND Nurse Practitioner Family | DX: N64.4 Mastodynia (principal); N64.9 Disorder of breast, unspecified ==

== ENCOUNTER → 2023-03-08 | Outpatient (CLI) | payer OTHER ==
[~2023-03-08] MED LIST changes: +DICY-61 PO; -DICY10CA13 PO; +MECL-209 PO; -MECL1TAB31 PO
[2023-03-08 18:49] LABS: MEAN CORPUSCULAR HEMOGLOBIN 14.5 pg (27.0-33.0); MEAN CORPUSCULAR HGB CONC 23.1 g/dl (32.0-36.5); MEAN CORPUSCULAR VOLUME 62.8 fl (80.0-96.0); PLATELET COUNT, AUTOMATED 124 10^3/uL (150-450); WHITE BLOOD COUNT 5.4 10^3/uL (4.0-10.0)
[2023-03-08 19:01] LABS: ALBUMIN 3.5 G/DL (3.2-5.2); ALKALINE PHOSPHATASE 45 U/L (46-116); ALT/SGPT 10 U/L (7.0-40); AST/SGOT < 8 U/L (<34); BILIRUBIN,TOTAL 0.2 MG/DL (0.3-1.2); BLOOD UREA NITROGEN 13 MG/DL (9-23); CALCIUM LEVEL 7.8 MG/DL (8.5-10.1); CARBON DIOXIDE LEVEL 27 MMOL/L (20-31); CHLORIDE LEVEL 108 MMOL/L (98-107); CREATININE FOR GFR 0.55 MG/DL (0.55-1.30); FERRITIN 4.1 NG/ML (7.3-270.7); GLOMERULAR FILTRATION RATE > 60.0 (>58); GLUCOSE, FASTING 92 MG/DL (60-100); IRON (FE) 8 UG/DL (50-170); POTASSIUM SERUM 4.2 MMOL/L (3.5-5.1); SODIUM LEVEL 142 MMOL/L (136-145); TOTAL PROTEIN 6.5 G/DL (5.7-8.2)
[2023-03-08 19:02] LABS: THYROID STIMULATING HORMONE 3.195 uIU/ML (0.55-4.78)
[2023-03-08 20:39] LABS: HEMATOCRIT 18.2 % (36.0-47.0); HEMOGLOBIN 4.2 g/dl (12.0-15.5)
== END ==
LOC: M PLALAB 15:17
PROVIDERS: ATTEND Nurse Practitioner Adult Health
DX: D50.9 Iron deficiency anemia, unspecified (principal); R53.83 Other fatigue

== ENCOUNTER 2023-03-09 09:26 | Observation (INO) | payer OTHER ==
[2023-03-09] VITALS (17 sets, daily range): BP systolic 106–121; BP diastolic 55–72; TEMP 97.2–99.1; O2SAT 98–100
[~2023-03-09] VITALS: Ht 166.4 cm; Wt 68.4 kg
[2023-03-09 11:19] LABS: HEMATOCRIT 18.2 % (36.0-47.0)
[2023-03-09 11:20] LABS: HEMOGLOBIN 4.2 g/dl (12.0-15.5)
[2023-03-09] MEDS ORDERED: MED REC IN PROGRESS XX SCH (11:25)
[2023-03-09 11:29] LABS: BLOOD UREA NITROGEN 12 MG/DL (9-23); CALCIUM LEVEL 7.9 MG/DL (8.5-10.1); CARBON DIOXIDE LEVEL 27 MMOL/L (20-31); CHLORIDE LEVEL 106 MMOL/L (98-107); CREATININE FOR GFR 0.46 MG/DL (0.55-1.30); GLOMERULAR FILTRATION RATE > 60.0 (>58); GLUCOSE, FASTING 87 MG/DL (60-100); SODIUM LEVEL 140 MMOL/L (136-145)
[2023-03-09] MEDS ORDERED: HOME MED LIST COMPLETE! XX SCH (13:00)
[2023-03-09 13:01] LABS: IRON (FE) 7 UG/DL (50-170)
[2023-03-09 13:02] LABS: PERCENT SATURATION 1.4 % (13.2-45.0); TOTAL IRON BINDING CAPACITY 487 UG/DL (250-425)
[2023-03-09 13:04] LABS: FERRITIN 2.1 NG/ML (7.3-270.7); FOLATE 11.6 NG/ML (>5.4); VITAMIN B12 LEVEL 422 PG/ML (211-911)
[2023-03-09] MEDS ORDERED: FERRIC CARBOXYMALTOSE INJ 750 MG, VIAL MATE ADAPTER 1 EACH in NS 250 ML IV ONE (16:00)
[2023-03-10] VITALS (8 sets, daily range): BP systolic 97–122; BP diastolic 53–80; TEMP 97.6–99.6; O2SAT 95–99
[2023-03-10 00:42] LABS: HEMATOCRIT 26.9 % (36.0-47.0)
[2023-03-10 00:52] LABS: HEMOGLOBIN 7.7 g/dl (12.0-15.5)
[2023-03-10 05:30] LABS: HEMATOCRIT 27.1 % (36.0-47.0); HEMOGLOBIN 7.8 g/dl (12.0-15.5); MEAN CORPUSCULAR HEMOGLOBIN 20.5 pg (27.0-33.0); MEAN CORPUSCULAR HGB CONC 28.8 g/dl (32.0-36.5); MEAN CORPUSCULAR VOLUME 71.1 fl (80.0-96.0); RED BLOOD COUNT 3.81 10^6/uL (4.00-5.40); WHITE BLOOD COUNT 6.5 10^3/uL (4.0-10.0)
[2023-03-10 05:51] LABS: BLOOD UREA NITROGEN 13 MG/DL (9-23); CALCIUM LEVEL 7.7 MG/DL (8.5-10.1); CARBON DIOXIDE LEVEL 27 MMOL/L (20-31); CHLORIDE LEVEL 110 MMOL/L (98-107); CREATININE FOR GFR 0.47 MG/DL (0.55-1.30); GLOMERULAR FILTRATION RATE > 60.0 (>58); GLUCOSE, FASTING 83 MG/DL (60-100); POTASSIUM SERUM 4.4 MMOL/L (3.5-5.1); SODIUM LEVEL 142 MMOL/L (136-145)
[2023-03-10 06:09] LABS: PLATELET COUNT, AUTOMATED 99 10^3/uL (150-450)
[2023-03-10] MEDS ORDERED: FERR325T3 PO (09:30)
[2023-03-10] MEDS ORDERED: INFLUENZA QUADRIVALENT PF VACCINE 0.5ML SYRINGE IM.IMMUN ONE (15:00)
[2023-03-10 15:16] LABS: HEMATOCRIT 33.5 % (36.0-47.0)
== END 2023-03-10 16:27 | disposition home or self-care (01) ==
LOC: M ED 09:26 → M ED INP 09:27 → ENRESERV 16:54 → M PCU 17:16
PROVIDERS: ADMIT Internal Medicine; ATTEND Internal Medicine
DX: D64.9 Anemia, unspecified (principal); Z98.84 Bariatric surgery status; D69.6 Thrombocytopenia, unspecified; Z91.040 Latex allergy status; Z88.7 Allergy status to serum and vaccine; Z79.899 Other long term (current) drug therapy; Z23 Encounter for immunization
CPT/HCPCS: 36415; 36430; 80048; 82607; 82728; 82746; 83550; 85014; 85018; 85027; 85049; 85055; 86850; 86900; 86901; 86920; 87635; 90686; 93005; 93041; 94760; 96365; 99285; G0008; J1439; P9016

== ENCOUNTER → 2023-04-28 | Outpatient (CLI) | payer OTHER ==
[2023-04-28 18:46] LABS: BASO % 0.2 % (0.0-1.0); EOS % 0.3 % (0.0-3.0); HEMATOCRIT 24.7 % (36.0-47.0); HEMOGLOBIN 7.3 g/dl (12.0-15.5); LYMPH # 1.7 10^3/uL (1.5-5.0); LYMPH % 19.8 % (24.0-44.0); MEAN CORPUSCULAR HEMOGLOBIN 25.7 pg (27.0-33.0); MEAN CORPUSCULAR HGB CONC 29.6 g/dl (32.0-36.5); MONO # 0.8 10^3/uL (0.0-0.8); MONO % 9.6 % (2.0-8.0); NEUTROPHILS # 6.1 10^3/uL (1.5-8.5); NEUTROPHILS % 69.8 % (36.0-66.0); PLATELET COUNT, AUTOMATED 544 10^3/uL (150-450); RED BLOOD COUNT 2.84 10^6/uL (4.00-5.40); WHITE BLOOD COUNT 8.8 10^3/uL (4.0-10.0)
[2023-04-28 18:59] LABS: INR 1.03; PROTHROMBIN TIME 13.2 SECONDS (12.5-14.5)
[2023-04-28 19:00] LABS: PARTIAL THROMBOPLASTIN TIME 31.2 SECONDS (24.8-34.2)
[2023-04-28 19:14] LABS: ALBUMIN 3.2 G/DL (3.2-5.2); ALKALINE PHOSPHATASE 62 U/L (46-116); ALT/SGPT < 9 U/L (7.0-40); AST/SGOT < 8 U/L (<34); BILIRUBIN,TOTAL 0.2 MG/DL (0.3-1.2); BLOOD UREA NITROGEN 14 MG/DL (9-23); CALCIUM LEVEL 8.3 MG/DL (8.5-10.1); CARBON DIOXIDE LEVEL 31 MMOL/L (20-31); CHLORIDE LEVEL 102 MMOL/L (98-107); CREATININE FOR GFR 0.43 MG/DL (0.55-1.30); GLOMERULAR FILTRATION RATE > 60.0 (>58); GLUCOSE, FASTING 85 MG/DL (60-100); IRON (FE) 11 UG/DL (50-170); POTASSIUM SERUM 3.2 MMOL/L (3.5-5.1); SODIUM LEVEL 139 MMOL/L (136-145); TOTAL PROTEIN 6.8 G/DL (5.7-8.2)
[2023-04-28 19:15] LABS: FERRITIN 11.8 NG/ML (7.3-270.7); FOLATE 11.01 NG/ML (>5.4)
[2023-04-28 19:17] LABS: VITAMIN B12 LEVEL > 2000 PG/ML (211-911)
== END ==
LOC: M WUC 15:12
PROVIDERS: ATTEND Nurse Practitioner Adult Health
DX: D69.3 Immune thrombocytopenic purpura (principal); D64.9 Anemia, unspecified; Z98.84 Bariatric surgery status

== ENCOUNTER 2023-05-12 09:51 | Outpatient (CLI) | payer OTHER ==
[~2023-05-12] VITALS: Ht 167.6 cm; Wt 64.0 kg
[2023-05-12] MEDS ORDERED: diphenhydrAMINE 25MG CAP PO ONE (10:00)
[2023-05-12] MEDS ORDERED: ACETAMINOPHEN TAB 650MG DOSE (2X325MG) PO ONE (10:00)
[2023-05-12 10:05] VITALS: BP 120/66; O2SAT 100
[2023-05-12 12:20] VITALS: BP 103/64; TEMP 99; O2SAT 100
[2023-05-12 13:20] VITALS: BP 117/63; TEMP 98.6; O2SAT 98
[2023-05-12 14:20] VITALS: BP 121/62; TEMP 98.1; O2SAT 98
[2023-05-12 15:52] VITALS: BP 125/57; O2SAT 98
== END 2023-05-12 15:55 ==
LOC: M INFU 09:51
PROVIDERS: ATTEND Nurse Practitioner Adult Health
DX: D50.9 Iron deficiency anemia, unspecified (principal); Z91.040 Latex allergy status; Z88.7 Allergy status to serum and vaccine
CPT/HCPCS: 36430; 36592; 86850; 86900; 86901; 86920; P9016

== ENCOUNTER 2023-06-30 15:09 | Emergency (ER) | payer OTHER ==
[~2023-06-30] VITALS: Ht 167.6 cm; Wt 64.9 kg
[2023-06-30] MEDS ORDERED: GLYCCAP PO (15:24)
[2023-06-30] MEDS ORDERED: IBUPROFEN 600MG TAB PO ONE (18:05)
[2023-06-30] MEDS: ACETAMINOPHEN 500 MG TAB PO ONE (18:29)
[2023-06-30] MEDS ORDERED: IBUP-1022 PO (20:01)
[2023-06-30] MEDS ORDERED: METH-1164 PO (20:02)
[2023-06-30 20:15] VITALS: BP 108/68; TEMP 98; O2SAT 100
== END 2023-06-30 20:20 | disposition home or self-care (01) ==
LOC: M ED 15:09
DX: M54.50 Low back pain, unspecified (principal); M25.512 Pain in left shoulder; G43.909 Migraine, unspecified, not intractable, without status migrainosus; J45.909 Unspecified asthma, uncomplicated; D64.9 Anemia, unspecified; K58.9 Irritable bowel syndrome, unspecified; Z98.84 Bariatric surgery status; Z90.49 Acquired absence of other specified parts of digestive tract; Z88.7 Allergy status to serum and vaccine; Z91.040 Latex allergy status; Z79.52 Long term (current) use of systemic steroids; Z79.899 Other long term (current) drug therapy

== ENCOUNTER → 2023-07-10 | Outpatient (CLI) | payer OTHER ==
[~2023-07-10] MED LIST changes: +GLYCCAP PO; +IBUP-1022 PO; +METH-1164 PO
[2023-07-10 16:07] LABS: BASO % 0.8 % (0.0-1.0); EOS % 0.8 % (0.0-3.0); HEMATOCRIT 28.7 % (36.0-47.0); HEMOGLOBIN 7.8 g/dl (12.0-15.5); LYMPH # 1.3 10^3/uL (1.5-5.0); MEAN CORPUSCULAR HEMOGLOBIN 20.6 pg (27.0-33.0); MEAN CORPUSCULAR HGB CONC 27.2 g/dl (32.0-36.5); MEAN CORPUSCULAR VOLUME 75.9 fl (80.0-96.0); MONO # 0.4 10^3/uL (0.0-0.8); MONO % 11.7 % (2.0-8.0); NEUTROPHILS % 52.7 % (36.0-66.0); PLATELET COUNT, AUTOMATED 296 10^3/uL (150-450); RED BLOOD COUNT 3.78 10^6/uL (4.00-5.40); WHITE BLOOD COUNT 3.8 10^3/uL (4.0-10.0)
[2023-07-10 16:17] LABS: ALBUMIN 3.4 G/DL (3.2-5.2); ALKALINE PHOSPHATASE 42 U/L (46-116); ALT/SGPT 24 U/L (7.0-40); AST/SGOT 11 U/L (<34); BILIRUBIN,TOTAL 0.2 MG/DL (0.3-1.2); BLOOD UREA NITROGEN 13 MG/DL (9-23); CALCIUM LEVEL 8.5 MG/DL (8.5-10.1); CARBON DIOXIDE LEVEL 29 MMOL/L (20-31); CHLORIDE LEVEL 107 MMOL/L (98-107); CREATININE FOR GFR 0.43 MG/DL (0.55-1.30); FERRITIN 1.4 NG/ML (7.3-270.7); GLOMERULAR FILTRATION RATE > 60.0 (>58); GLUCOSE, FASTING 83 MG/DL (60-100); POTASSIUM SERUM 4.1 MMOL/L (3.5-5.1); SODIUM LEVEL 137 MMOL/L (136-145); TOTAL IRON BINDING CAPACITY 431 UG/DL (250-425); TOTAL PROTEIN 6.3 G/DL (5.7-8.2)
[2023-07-10 16:18] LABS: IRON (FE) 8 UG/DL (50-170); PERCENT SATURATION 1.9 % (13.2-45.0)
[2023-07-10 16:22] LABS: FOLATE 11.79 NG/ML (>5.4)
== END ==
LOC: M PLALAB 11:46
PROVIDERS: ATTEND Nurse Practitioner Adult Health
DX: D50.9 Iron deficiency anemia, unspecified (principal); R53.83 Other fatigue

== ENCOUNTER 2023-08-04 12:20 | Emergency (ER) | payer OTHER ==
[~2023-08-04] VITALS: Ht 165.1 cm; Wt 67.8 kg
[2023-08-04 12:21] VITALS: BP 144/78; TEMP 98.6; O2SAT 100
== END 2023-08-04 14:39 | disposition left against medical advice (07) ==
LOC: M ED 12:20
DX: Z53.21 Procedure and treatment not carried out due to patient leaving prior to being seen by health care provider (principal)

== ENCOUNTER 2023-08-07 12:04 | Outpatient (CLI) | payer OTHER ==
[~2023-08-07] VITALS: Ht 166.4 cm; Wt 67.7 kg
[~2023-08-07 12:04] MED LIST changes: +ALBUTEROL SULFATE 2.5MG/0.5ML INH NEB SOLN INH PRN; +EPINEPHrine INJ 1 MG/ML 1ML AMP IM PRN; +NS 1,000 ML IV SCH; +diphenhydrAMINE 50MG/ML VIAL IV PRN; +methylPREDNISolone 125MG 2ML VIAL IV PRN
[2023-08-07 12:15] VITALS: BP 97/57; O2SAT 99
[2023-08-07] MEDS: IRON SUCROSE 200 MG in NS 100 ML OVER 1 HR IV ONE (12:49)
[2023-08-07 13:57] VITALS: BP 93/54; O2SAT 98
== END 2023-08-07 13:58 ==
LOC: M INFU 12:04
PROVIDERS: ATTEND Nurse Practitioner Adult Health
DX: D50.9 Iron deficiency anemia, unspecified (principal); Z91.040 Latex allergy status; Z88.7 Allergy status to serum and vaccine
CPT/HCPCS: 96365; J1756

== ENCOUNTER → 2023-08-09 | Outpatient (REF) | payer OTHER ==
[~2023-08-09] MED LIST changes: -ALBUTEROL SULFATE 2.5MG/0.5ML INH NEB SOLN INH PRN; -EPINEPHrine INJ 1 MG/ML 1ML AMP IM PRN; -NS 1,000 ML IV SCH; -diphenhydrAMINE 50MG/ML VIAL IV PRN; -methylPREDNISolone 125MG 2ML VIAL IV PRN
== END ==
LOC: M LABDRAWP 17:14
PROVIDERS: ATTEND Nurse Practitioner Adult Health
DX: D64.9 Anemia, unspecified (principal)

== ENCOUNTER 2023-08-10 10:44 | Outpatient (CLI) | payer OTHER ==
[2023-08-10 10:50] VITALS: BP 125/65; O2SAT 100
[2023-08-10] MEDS: diphenhydrAMINE 25MG CAP PO ONE (11:22)
[2023-08-10] MEDS: ACETAMINOPHEN TAB 650MG DOSE (2X325MG) PO ONE (11:22)
[2023-08-10 12:16] VITALS: BP 121/65; TEMP 98.9; O2SAT 100
[2023-08-10 13:30] VITALS: BP 103/55; TEMP 96.9; O2SAT 98
[2023-08-10 13:45] VITALS: BP 103/55; O2SAT 98
== END 2023-08-10 13:45 | disposition home or self-care (01) ==
LOC: M INFU 10:44
PROVIDERS: ATTEND Nurse Practitioner Adult Health
DX: D64.9 Anemia, unspecified (principal); Z88.7 Allergy status to serum and vaccine
CPT/HCPCS: 36430; 86920; P9016

== ENCOUNTER 2023-08-16 13:40 | Outpatient (CLI) | payer OTHER ==
[~2023-08-16] VITALS: Ht 165.1 cm; Wt 67.7 kg
[2023-08-16 13:40] VITALS: BP 135/75; O2SAT 99
[~2023-08-16 13:40] MED LIST changes: +ALBUTEROL SULFATE 2.5MG/0.5ML INH NEB SOLN INH PRN; +EPINEPHrine INJ 1 MG/ML 1ML AMP IM PRN; +NS 1,000 ML IV SCH; +diphenhydrAMINE 50MG/ML VIAL IV PRN; +methylPREDNISolone 125MG 2ML VIAL IV PRN
[2023-08-16] MEDS: IRON SUCROSE 200 MG in NS 100 ML OVER 1 HR IV ONE (13:49)
[2023-08-16 14:55] VITALS: BP 128/63; O2SAT 99
== END 2023-08-16 14:55 ==
LOC: M INFU 13:40
PROVIDERS: ATTEND Nurse Practitioner Adult Health
DX: D50.9 Iron deficiency anemia, unspecified (principal); Z88.7 Allergy status to serum and vaccine; Z91.040 Latex allergy status
CPT/HCPCS: 96365; J1756

== ENCOUNTER 2023-08-29 09:00 | Outpatient (CLI) | payer OTHER ==
[2023-08-29 09:05] VITALS: BP 108/54; O2SAT 100
[2023-08-29] MEDS: IRON SUCROSE 200 MG in NS 100 ML IV ONE (09:29)
[2023-08-29 10:35] VITALS: BP 103/51; O2SAT 100
== END 2023-08-29 10:35 | disposition home or self-care (01) ==
LOC: M INFU 09:00
PROVIDERS: ATTEND Nurse Practitioner Adult Health
DX: D50.9 Iron deficiency anemia, unspecified (principal); Z88.7 Allergy status to serum and vaccine; Z91.040 Latex allergy status
CPT/HCPCS: 96365; J1756

== ENCOUNTER 2023-09-05 09:30 | Outpatient (CLI) | payer OTHER ==
[~2023-09-05] VITALS: Ht 167.6 cm; Wt 69.1 kg
[2023-09-05 09:30] VITALS: BP 121/73; O2SAT 100
[2023-09-05] MEDS: IRON SUCROSE 200 MG in NS 100 ML OVER 1 HR IV ONE (09:32)
[2023-09-05 10:05] VITALS: BP 112/67; O2SAT 100
== END 2023-09-05 10:15 | disposition home or self-care (01) ==
LOC: M INFU 09:30
PROVIDERS: ATTEND Nurse Practitioner Adult Health
DX: D50.9 Iron deficiency anemia, unspecified (principal); Z88.7 Allergy status to serum and vaccine; Z91.040 Latex allergy status
CPT/HCPCS: 96365; J1756

== ENCOUNTER 2023-10-02 13:53 | Outpatient (CLI) | payer OTHER ==
[~2023-10-02] VITALS: Ht 152.4 cm; Wt 63.6 kg
[~2023-10-02 13:53] MED LIST changes: -NS 1,000 ML IV SCH; +ONDA-282 PO; -ONDA4TAB6 PO
[2023-10-02 14:00] VITALS: BP 117/74; O2SAT 98
[2023-10-02] MEDS ORDERED: NS 1,000 ML IV SCH (14:00)
[2023-10-02] MEDS: IRON SUCROSE 200 MG in NS 100 ML OVER 1 HR IV ONE (14:30)
[2023-10-02 15:35] VITALS: BP 124/76; O2SAT 100
== END 2023-10-02 15:35 ==
LOC: M INFU 13:53
PROVIDERS: ATTEND Nurse Practitioner Adult Health
DX: D50.9 Iron deficiency anemia, unspecified (principal); Z88.7 Allergy status to serum and vaccine; Z91.040 Latex allergy status
CPT/HCPCS: 96365; J1756

== ENCOUNTER → 2023-10-16 | Outpatient (CLI) | payer OTHER ==
[~2023-10-16] MED LIST changes: -ALBUTEROL SULFATE 2.5MG/0.5ML INH NEB SOLN INH PRN; -EPINEPHrine INJ 1 MG/ML 1ML AMP IM PRN; -diphenhydrAMINE 50MG/ML VIAL IV PRN; -methylPREDNISolone 125MG 2ML VIAL IV PRN
== END ==
LOC: M OUTALCOH 08:44
PROVIDERS: ATTEND Psychiatry & Neurology Psychiatry
DX: Z03.89 Encounter for observation for other suspected diseases and conditions ruled out (principal); Z72.0 Tobacco use

== ENCOUNTER 2023-10-27 15:09 | Outpatient (CLI) | payer OTHER ==
[~2023-10-27] VITALS: Ht 166.4 cm; Wt 66.0 kg
[~2023-10-27 15:09] MED LIST changes: +ALBUTEROL SULFATE 2.5MG/0.5ML INH NEB SOLN INH PRN; +EPINEPHrine INJ 1 MG/ML 1ML AMP IM PRN; +diphenhydrAMINE 50MG/ML VIAL IV PRN; +methylPREDNISolone 125MG 2ML VIAL IV PRN
[2023-10-27 15:15] VITALS: BP 110/58; O2SAT 99
[2023-10-27] MEDS ORDERED: NS 1,000 ML IV SCH (15:30)
[2023-10-27] MEDS: IRON SUCROSE 200 MG in NS 100 ML OVER 1 HR IV ONE (15:49)
[2023-10-27 16:40] VITALS: BP 112/56; O2SAT 100
== END 2023-10-27 16:40 ==
LOC: M INFU 15:09
PROVIDERS: ATTEND Nurse Practitioner Adult Health
DX: D50.9 Iron deficiency anemia, unspecified (principal); Z88.7 Allergy status to serum and vaccine; Z91.040 Latex allergy status
CPT/HCPCS: 96365; C1751; J1756

== ENCOUNTER → 2023-12-26 | Outpatient (CLI) | payer OTHER ==
[~2023-12-26] MED LIST changes: -ALBUTEROL SULFATE 2.5MG/0.5ML INH NEB SOLN INH PRN; -EPINEPHrine INJ 1 MG/ML 1ML AMP IM PRN; -diphenhydrAMINE 50MG/ML VIAL IV PRN; -methylPREDNISolone 125MG 2ML VIAL IV PRN
[2023-12-26 14:20] LABS: HEMATOCRIT 32.9 % (36.0-47.0); HEMOGLOBIN 9.5 g/dl (12.0-15.5); MEAN CORPUSCULAR HEMOGLOBIN 21.5 pg (27.0-33.0); MEAN CORPUSCULAR HGB CONC 28.9 g/dl (32.0-36.5); MEAN CORPUSCULAR VOLUME 74.4 fl (80.0-96.0); PLATELET COUNT, AUTOMATED 240 10^3/uL (150-450); RED BLOOD COUNT 4.42 10^6/uL (4.00-5.40); WHITE BLOOD COUNT 4.1 10^3/uL (4.0-10.0)
[2023-12-26 14:50] LABS: IRON (FE) 14 UG/DL (50-170); PERCENT SATURATION 3.3 % (13.2-45.0); TOTAL IRON BINDING CAPACITY 427 UG/DL (250-425)
[2023-12-26 14:51] LABS: ALBUMIN 3.6 G/DL (3.2-5.2); ALKALINE PHOSPHATASE 54 U/L (46-116); ALT/SGPT < 9 U/L (7.0-40); AST/SGOT < 8 U/L (<34); BILIRUBIN,TOTAL 0.2 MG/DL (0.3-1.2); BLOOD UREA NITROGEN 6 MG/DL (9-23); CALCIUM LEVEL 8.7 MG/DL (8.5-10.1); CARBON DIOXIDE LEVEL 28 MMOL/L (20-31); CHLORIDE LEVEL 106 MMOL/L (98-107); CREATININE FOR GFR 0.53 MG/DL (0.55-1.30); GLOMERULAR FILTRATION RATE > 60.0 (>58); GLUCOSE, FASTING 101 MG/DL (60-100); POTASSIUM SERUM 3.8 MMOL/L (3.5-5.1); SODIUM LEVEL 142 MMOL/L (136-145); TOTAL PROTEIN 6.8 G/DL (5.7-8.2)
[2023-12-26 14:54] LABS: FERRITIN 1.3 NG/ML (7.3-270.7); THYROID STIMULATING HORMONE 5.556 uIU/ML (0.55-4.78); TOTAL 25(OH) VITAMIN D 18.5 NG/ML (20.0-100.0)
[2023-12-26 14:56] LABS: VITAMIN B12 LEVEL 429 PG/ML (211-911)
== END ==
LOC: M PLALAB 10:49
PROVIDERS: ATTEND Nurse Practitioner Adult Health
DX: D50.9 Iron deficiency anemia, unspecified (principal); R53.83 Other fatigue; E55.9 Vitamin D deficiency, unspecified

== ENCOUNTER 2024-01-25 14:00 | Outpatient (CLI) | payer OTHER ==
[~2024-01-25] VITALS: Ht 165.1 cm; Wt 63.6 kg
[~2024-01-25 14:00] MED LIST changes: +ALBUTEROL SULFATE 2.5MG/0.5ML INH NEB SOLN INH PRN; +EPINEPHrine INJ 1 MG/ML 1ML AMP IM PRN; +NS 1,000 ML IV SCH; +diphenhydrAMINE 50MG/ML VIAL IV PRN; +methylPREDNISolone 125MG 2ML VIAL IV PRN
[2024-01-25 14:05] VITALS: BP 112/59; O2SAT 100
[2024-01-25] MEDS: IRON SUCROSE 200 MG in NS 100 ML IV ONE (14:50)
[2024-01-25 15:57] VITALS: BP 106/59; O2SAT 98
== END 2024-01-25 16:00 ==
LOC: M INFU 14:00
PROVIDERS: ATTEND Nurse Practitioner Adult Health
DX: D50.9 Iron deficiency anemia, unspecified (principal); Z88.7 Allergy status to serum and vaccine; Z91.040 Latex allergy status
CPT/HCPCS: 96365; J1756

== ENCOUNTER 2024-02-08 13:20 | Outpatient (CLI) | payer OTHER ==
[~2024-02-08] VITALS: Ht 167.6 cm; Wt 63.6 kg
[~2024-02-08 13:20] MED LIST changes: -NS 1,000 ML IV SCH
[2024-02-08 13:25] VITALS: BP 114/54; O2SAT 100
[2024-02-08] MEDS ORDERED: NS 1,000 ML IV SCH (13:30)
[2024-02-08] MEDS: IRON SUCROSE 200 MG in NS 100 ML OVER 1 HR IV ONE (14:29)
[2024-02-08 15:25] VITALS: BP 127/63; O2SAT 100
== END 2024-02-08 15:30 ==
LOC: M INFU 13:20
PROVIDERS: ATTEND Nurse Practitioner Adult Health
DX: D50.9 Iron deficiency anemia, unspecified (principal); Z88.7 Allergy status to serum and vaccine; Z91.040 Latex allergy status
CPT/HCPCS: 96365; J1756

== ENCOUNTER 2024-02-16 14:05 | Outpatient (CLI) | payer OTHER ==
[~2024-02-16] VITALS: Ht 165.1 cm; Wt 61.3 kg
[~2024-02-16 14:05] MED LIST changes: +NS 1,000 ML IV SCH; +VALA500T5 PO
[2024-02-16 14:10] VITALS: BP 107/54; O2SAT 100
[2024-02-16] MEDS: IRON SUCROSE 200 MG in NS 100 ML OVER 1 HR IV ONE (14:46)
[2024-02-16 15:52] VITALS: BP 100/57; O2SAT 96
== END 2024-02-16 15:55 ==
LOC: M INFU 14:05
PROVIDERS: ATTEND Nurse Practitioner Adult Health
DX: D50.9 Iron deficiency anemia, unspecified (principal); Z88.7 Allergy status to serum and vaccine; Z91.040 Latex allergy status
CPT/HCPCS: 96365; J1756

== ENCOUNTER 2024-02-23 14:00 | Outpatient (CLI) | payer OTHER ==
[~2024-02-23] VITALS: Ht 167.6 cm; Wt 64.5 kg
[~2024-02-23 14:00] MED LIST changes: -NS 1,000 ML IV SCH
[2024-02-23 14:05] VITALS: BP 110/67; O2SAT 100
[2024-02-23] MEDS: IRON SUCROSE 200 MG in NS 100 ML OVER 1 HR IV ONE (14:50)
[2024-02-23 15:52] VITALS: BP 102/57; O2SAT 99
== END 2024-02-23 15:55 ==
LOC: M INFU 14:00
PROVIDERS: ATTEND Nurse Practitioner Adult Health
DX: D50.9 Iron deficiency anemia, unspecified (principal); Z88.7 Allergy status to serum and vaccine; Z91.040 Latex allergy status
CPT/HCPCS: 96365; J1756

== ENCOUNTER 2024-02-27 08:52 | Day surgery (SDC) | payer OTHER ==
[~2024-02-27] VITALS: Ht 165.1 cm; Wt 66.0 kg
[~2024-02-27 08:52] MED LIST changes: -ALBUTEROL SULFATE 2.5MG/0.5ML INH NEB SOLN INH PRN; -EPINEPHrine INJ 1 MG/ML 1ML AMP IM PRN; +NS 250 ML IV ONE; -diphenhydrAMINE 50MG/ML VIAL IV PRN; -methylPREDNISolone 125MG 2ML VIAL IV PRN
[2024-02-27] MEDS ORDERED: propofoL 200 MG/20 ML VIAL As Ordered ONE (11:10)
[2024-02-27] MEDS ORDERED: LIDOCAINE 2% 100MG/5ML SDV (FOR ANES.) As Ordered ONE (11:10)
[2024-02-27] MEDS ORDERED: fentaNYL 100 MCG/2 ML INJECTION As Ordered ONE (11:20)
[2024-02-27 12:23] VITALS: TEMP 98.3
[2024-02-27 12:45] VITALS: BP 99/55; O2SAT 100
== END 2024-02-27 12:58 | disposition home or self-care (01) ==
LOC: M OPP 08:52
PROVIDERS: ATTEND Surgery
DX: K63.5 Polyp of colon (principal); D50.9 Iron deficiency anemia, unspecified; Z98.84 Bariatric surgery status; G43.909 Migraine, unspecified, not intractable, without status migrainosus; F17.290 Nicotine dependence, other tobacco product, uncomplicated; Z88.7 Allergy status to serum and vaccine; Z91.040 Latex allergy status; Z79.899 Other long term (current) drug therapy
CPT/HCPCS: 43235; 45380; 88305; J3010

== ENCOUNTER 2024-03-01 14:10 | Outpatient (CLI) | payer OTHER ==
[~2024-03-01] VITALS: Ht 165.1 cm; Wt 66.0 kg
[2024-03-01 14:10] VITALS: BP 115/59; O2SAT 99
[~2024-03-01 14:10] MED LIST changes: +ALBUTEROL SULFATE 2.5MG/0.5ML INH NEB SOLN INH PRN; +EPINEPHrine INJ 1 MG/ML 1ML AMP IM PRN; +NS 1,000 ML IV SCH; -NS 250 ML IV ONE; +diphenhydrAMINE 50MG/ML VIAL IV PRN; +methylPREDNISolone 125MG 2ML VIAL IV PRN
[2024-03-01] MEDS: IRON SUCROSE 200 MG in NS 100 ML IV ONE (14:50)
== END 2024-03-01 15:55 ==
LOC: M INFU 14:10
PROVIDERS: ATTEND Nurse Practitioner Adult Health
DX: D50.9 Iron deficiency anemia, unspecified (principal); Z88.7 Allergy status to serum and vaccine; Z91.040 Latex allergy status
CPT/HCPCS: 96365; J1756

== ENCOUNTER → 2024-04-10 | Outpatient (CLI) | payer OTHER ==
[~2024-04-10] MED LIST changes: -ALBUTEROL SULFATE 2.5MG/0.5ML INH NEB SOLN INH PRN; -EPINEPHrine INJ 1 MG/ML 1ML AMP IM PRN; -NS 1,000 ML IV SCH; -diphenhydrAMINE 50MG/ML VIAL IV PRN; -methylPREDNISolone 125MG 2ML VIAL IV PRN
[2024-04-10 18:10] LABS: HEMATOCRIT 33.5 % (36.0-47.0); HEMOGLOBIN 9.5 g/dl (12.0-15.5); MEAN CORPUSCULAR HEMOGLOBIN 22.4 pg (27.0-33.0); MEAN CORPUSCULAR HGB CONC 28.4 g/dl (32.0-36.5); MEAN CORPUSCULAR VOLUME 78.8 fl (80.0-96.0); PLATELET COUNT, AUTOMATED 227 10^3/uL (150-450); RED BLOOD COUNT 4.25 10^6/uL (4.00-5.40); WHITE BLOOD COUNT 6.2 10^3/uL (4.0-10.0)
[2024-04-10 18:31] LABS: TOTAL IRON BINDING CAPACITY 446 UG/DL (250-425)
[2024-04-10 18:32] LABS: ALBUMIN 3.5 G/DL (3.2-5.2); ALKALINE PHOSPHATASE 48 U/L (35-104); ALT/SGPT 19 U/L (7.0-40); AST/SGOT 10 U/L (<34); BILIRUBIN,TOTAL 0.2 MG/DL (0.3-1.2); BLOOD UREA NITROGEN 13 MG/DL (9-23); CALCIUM LEVEL 8.9 MG/DL (8.5-10.1); CARBON DIOXIDE LEVEL 27 MMOL/L (20-31); CHLORIDE LEVEL 108 MMOL/L (98-107); CREATININE FOR GFR 0.53 MG/DL (0.55-1.30); GLOMERULAR FILTRATION RATE > 60.0 (>58); GLUCOSE, FASTING 88 MG/DL (60-100); IRON (FE) 13 UG/DL (50-170); PERCENT SATURATION 2.9 % (13.2-45.0); POTASSIUM SERUM 3.9 MMOL/L (3.5-5.1); SODIUM LEVEL 140 MMOL/L (136-145); TOTAL PROTEIN 7.1 G/DL (5.7-8.2)
[2024-04-10 18:33] LABS: VITAMIN B12 LEVEL 363 PG/ML (211-911)
[2024-04-10 18:34] LABS: TOTAL 25(OH) VITAMIN D 14.6 NG/ML (20.0-100.0)
== END ==
LOC: M PLALAB 14:43
PROVIDERS: ATTEND Nurse Practitioner Adult Health
DX: D50.9 Iron deficiency anemia, unspecified (principal); E55.9 Vitamin D deficiency, unspecified; R53.83 Other fatigue; K90.9 Intestinal malabsorption, unspecified

== ENCOUNTER 2024-05-13 15:45 | Outpatient (CLI) | payer OTHER ==
[~2024-05-13 15:45] MED LIST changes: +ALBUTEROL SULFATE 2.5MG/0.5ML INH NEB SOLN INH PRN; +EPINEPHrine INJ 1 MG/ML 1ML AMP IM PRN; +diphenhydrAMINE 50MG/ML VIAL IV PRN; +methylPREDNISolone 125MG 2ML VIAL IV PRN
[2024-05-13] MEDS: IRON SUCROSE 200 MG IVP IV ONE (15:53)
[2024-05-13 16:01] VITALS: BP 120/63; O2SAT 95
[2024-05-13 16:03] VITALS: BP 120/63; TEMP 37; O2SAT 95
[2024-05-13 16:31] VITALS: BP 118/66; O2SAT 96
== END 2024-05-13 16:30 ==
LOC: M INFU 15:45
PROVIDERS: ATTEND Nurse Practitioner Adult Health
DX: D50.9 Iron deficiency anemia, unspecified (principal); Z88.7 Allergy status to serum and vaccine; Z91.040 Latex allergy status
CPT/HCPCS: 96374; J1756

== ENCOUNTER 2024-05-20 11:58 | Outpatient (CLI) | payer OTHER ==
[~2024-05-20] VITALS: Ht 167.6 cm; Wt 65.9 kg
[2024-05-20 12:05] VITALS: BP 112/51; O2SAT 98
[2024-05-20] MEDS: IRON SUCROSE 200MG IVP IV ONE (12:11)
[2024-05-20 12:40] VITALS: BP 108/51; O2SAT 99
== END 2024-05-20 12:45 ==
LOC: M INFU 11:58
PROVIDERS: ATTEND Nurse Practitioner Adult Health
DX: D50.9 Iron deficiency anemia, unspecified (principal); Z88.7 Allergy status to serum and vaccine; Z91.040 Latex allergy status
CPT/HCPCS: 96374; J1756

== ENCOUNTER 2024-05-27 12:20 | Outpatient (CLI) | payer OTHER ==
[2024-05-27 12:20] VITALS: BP 118/56; O2SAT 100
[2024-05-27] MEDS: IRON SUCROSE 200 MG IVP IV ONE (12:28)
== END 2024-05-27 12:50 ==
LOC: M INFU 12:20
PROVIDERS: ATTEND Nurse Practitioner Adult Health
DX: D50.9 Iron deficiency anemia, unspecified (principal); Z88.7 Allergy status to serum and vaccine; Z91.040 Latex allergy status
CPT/HCPCS: 96374; J1756

== ENCOUNTER 2024-06-03 12:12 | Outpatient (CLI) | payer OTHER ==
[~2024-06-03] VITALS: Ht 167.6 cm; Wt 65.9 kg
[~2024-06-03 12:12] MED LIST changes: -ALBUTEROL SULFATE 2.5MG/0.5ML INH NEB SOLN INH PRN; -EPINEPHrine INJ 1 MG/ML 1ML AMP IM PRN; -diphenhydrAMINE 50MG/ML VIAL IV PRN; -methylPREDNISolone 125MG 2ML VIAL IV PRN
[2024-06-03 12:20] VITALS: BP 108/66; O2SAT 100
[2024-06-03] MEDS: IRON SUCROSE 200 MG IVP IV ONE (12:21)
[2024-06-03 12:55] VITALS: BP 111/63; O2SAT 100
== END 2024-06-03 12:55 ==
LOC: M INFU 12:12
PROVIDERS: ATTEND Nurse Practitioner Adult Health
DX: D50.9 Iron deficiency anemia, unspecified (principal); Z88.7 Allergy status to serum and vaccine; Z91.040 Latex allergy status
CPT/HCPCS: 96374; J1756

== ENCOUNTER 2024-08-25 18:29 | Emergency (ER) | payer OTHER ==
[~2024-08-25] VITALS: Ht 167.6 cm; Wt 69.1 kg
[2024-08-25 19:05] LABS: BASO % 0.9 % (0.0-1.0); EOS # 0.1 10^3/uL (0.0-0.5); EOS % 1.3 % (0.0-3.0); HEMATOCRIT 31.1 % (36.0-47.0); LYMPH # 1.5 10^3/uL (1.5-5.0); LYMPH % 31.3 % (24.0-44.0); MEAN CORPUSCULAR HEMOGLOBIN 22.8 pg (27.0-33.0); MEAN CORPUSCULAR HGB CONC 28.9 g/dl (32.0-36.5); MEAN CORPUSCULAR VOLUME 78.7 fl (80.0-96.0); MONO # 0.4 10^3/uL (0.0-0.8); MONO % 8.1 % (2.0-8.0); NEUTROPHILS # 2.7 10^3/uL (1.5-8.5); NEUTROPHILS % 58.2 % (36.0-66.0); PLATELET COUNT, AUTOMATED 267 10^3/uL (150-450); RED BLOOD COUNT 3.95 10^6/uL (4.00-5.40); WHITE BLOOD COUNT 4.7 10^3/uL (4.0-10.0)
[2024-08-25 19:30] LABS: IRON (FE) 11 UG/DL (50-170); PERCENT SATURATION 2.7 % (13.2-45.0); TOTAL IRON BINDING CAPACITY 409 UG/DL (250-425)
[2024-08-25 19:31] LABS: ALBUMIN 3.5 G/DL (3.2-5.2); ALKALINE PHOSPHATASE 58 U/L (35-104); ALT/SGPT 13 U/L (7.0-40); AST/SGOT 11 U/L (<34); BILIRUBIN,DIRECT < 0.1 MG/DL (<0.4); BILIRUBIN,TOTAL 0.2 MG/DL (0.3-1.2); BLOOD UREA NITROGEN 15 MG/DL (9-23); CALCIUM LEVEL 8.2 MG/DL (8.5-10.1); CARBON DIOXIDE LEVEL 28 MMOL/L (20-31); CHLORIDE LEVEL 109 MMOL/L (98-107); CREATININE FOR GFR 0.54 MG/DL (0.55-1.30); GLOMERULAR FILTRATION RATE > 90.0 (>58); GLUCOSE, FASTING 78 MG/DL (60-100); MAGNESIUM LEVEL 2.1 MG/DL (1.8-2.4); POTASSIUM SERUM 4.2 MMOL/L (3.5-5.1); SODIUM LEVEL 143 MMOL/L (136-145); TOTAL PROTEIN 6.5 G/DL (5.7-8.2)
[2024-08-25 19:32] LABS: FERRITIN < 0.9 NG/ML (7.3-270.7); THYROID STIMULATING HORMONE 1.373 uIU/ML (0.55-4.78)
[2024-08-25 20:27] VITALS: BP 89/52; TEMP 98.2; O2SAT 99
== END 2024-08-25 20:50 | disposition home or self-care (01) ==
LOC: M ED 18:29
DX: D50.9 Iron deficiency anemia, unspecified (principal); F17.290 Nicotine dependence, other tobacco product, uncomplicated; Z88.7 Allergy status to serum and vaccine; Z91.040 Latex allergy status; Z79.899 Other long term (current) drug therapy

== ENCOUNTER → 2025-02-06 | Outpatient (CLI) | payer OTHER ==
[~2025-02-06] MED LIST changes: -IBUP-1022 PO; +IBUP600T42 PO
== END ==
LOC: M WUC 10:27
PROVIDERS: ATTEND Student in an Organized Health Care Education/Training Program
DX: M25.571 Pain in right ankle and joints of right foot (principal)